=== PATIENT | male | born 1935 | race Native Hawaiian/Other Pacific Islander ===

== ENCOUNTER 2018-05-09 12:52 | Inpatient (IN) | payer OTHER ==
--- NOTE | 2018-05-09 13:26 | ED PDOC ---
Arrival/HPI <MaxwellDontrell - Last Filed: 05/09/18 15:04> <Bandar Gould - Last Filed: 05/09/18 15:42> - General Chief Complaint: Abnormal Labs - History of Present Illness Narrative History of Present Illness (Text): Patient is a 82 year old male with a past medical history of hypertension and CVA (2008) who presents to the emergency room for evaluation and treatment of abnormal lab values. Patient was sent in by Dr. Todd for further work up of abnormal kidney numbers on outpatient labs. Denies urinary urgency, frequency, and burning. Denies changes in urine quality and/or quantity. Admits to incresed generalized weakness over the past 3 years. Patient denies fever, chills, chest pain, SOB, abdominal pain, nausea, vomiting, diarrhea, constipation, and urinary symptoms. (Dontrell Arreola) Past Medical History - Provider Review Nursing Documentation Reviewed: Yes - Cardiac Hx Congestive Heart Failure: Yes Hx Hypertension: Yes - Neurological HX Cerebrovascular Accident: Yes (2008) - Psychiatric Hx Substance Use: No <Dontrell Arreola - Last Filed: 05/09/18 15:04> Family/Social History - Physician Review Nursing Documentation Reviewed: Yes Family/Social History: Unknown Family HX Smoking Status: Former Smoker Hx Alcohol Use: No Hx Substance Use: No <Dontrell Arreola - Last Filed: 05/09/18 15:04> Allergies/Home Meds <Dontrell Arreola - Last Filed: 05/09/18 15:04> <Bandar Gould - Last Filed: 05/09/18 15:42> Allergies/Adverse Reactions: Allergies No Known Allergies Allergy (Verified 05/09/18 13:01) Home Medications: Home Meds Medication Instructions Recorded Confirmed Aspirin [Aspirin EC] 325 mg PO DAILY 05/09/18 05/09/18 Clopidogrel [Plavix] 75 mg PO DAILY 05/09/18 05/09/18 Furosemide [Lasix] 20 mg PO DAILY 05/09/18 05/09/18 Losartan [Cozaar] 50 mg PO DAILY 05/09/18 05/09/18 Metoprolol Tartrate [Lopressor] 50 mg PO BID 05/09/18 05/09/18 Potassium Chloride [Klor-Con 10] 10 meq PO DAILY 05/09/18 05/09/18 Simvastatin [Simvastatin] 10 mg PO DAILY 05/09/18 05/09/18 Review of Systems - Review of Systems Constitutional: Normal Eyes: Normal ENT: Normal Respiratory: Normal Cardiovascular: Normal Gastrointestinal: Normal Genitourinary Male: Normal Musculoskeletal: Normal Skin: Normal Neurological: Normal Endocrine: Normal Hemo/Lymphatic: Normal Psychiatric: Normal <ArreolaDontrell sheppard - Last Filed: 05/09/18 15:04> Physical Exam Temperature: Afebrile Blood Pressure: Normal Pulse: Regular Respiratory Rate: Normal Appearance: Positive for: Well-Appearing, Non-Toxic, Comfortable Pain Distress: None Mental Status: Positive for: Alert and Oriented X 3 - Systems Exam Head: Present: Atraumatic, Normocephalic Pupils: Present: PERRL Extroacular Muscles: Present: EOMI Conjunctiva: Present: Normal Mouth: Present: Moist Mucous Membranes Neck: Present: Normal Range of Motion Respiratory/Chest: Present: Clear to Auscultation, Good Air Exchange. No: Respiratory Distress, Accessory Muscle Use Cardiovascular: Present: Regular Rate and Rhythm, Normal S1, S2. No: Murmurs Abdomen: No: Tenderness, Distention, Peritoneal Signs Back: Present: Normal Inspection Upper Extremity: Present: Normal Inspection. No: Cyanosis, Edema Lower Extremity: Present: Normal Inspection. No: Edema Neurological: Present: GCS=15, CN II-XII Intact, Speech Normal Skin: Present: Warm, Dry, Normal Color. No: Rashes Psychiatric: Present: Alert, Oriented x 3, Normal Insight, Normal Concentration <MaxwellDontrell - Last Filed: 05/09/18 15:04> Vital Signs Reviewed: Yes <Bandar Gould - Last Filed: 05/09/18 15:42> Vital Signs Temp Pulse Resp BP Pulse Ox 05/09/18 13:29 98.5 F 85 05/09/18 12:57 98.1 F 83 18 118/66 99 Medical Decision Making <Dontrell Arreola - Last Filed: 05/09/18 15:04> - Lab Interpretations I have reviewed the lab results: Yes <Bandar Gould - Last Filed: 05/09/18 15:42> ED Course and Treatment: Patient is a 82 year old male with a past medical history of hypertension and CVA (2008) who presents to the emergency room for evaluation and treatment of abnormal lab values. Outpatient Abnormal Lab Values 05/09/18 13:26 - CBC, CMP, Mag, Phos, and type and screen. 05/09/18 15:05 - labs reviewed- elevated BUN and creatinine noted - patient endorsed to Dr. Ordoñez who as except patient to her service (Dontrell Arreola) 05/09/18 In agreement with resident note, which includes further HPI details. Patient was seen and evaluated with resident, came up with plan and treatment together. (Bandar Gould) - Lab Interpretations Lab Results: 05/09/18 13:30 05/09/18 13:30 Lab Results 05/09/18 13:30: Sodium 145, Potassium 4.1, Chloride 111 H, Carbon Dioxide 19 L, Anion Gap 19, BUN 87 H, Creatinine 2.4 H, Est GFR ( Amer) 32, Est GFR ( Non-Af Amer) 26, Random Glucose 112 H, Calcium 8.6, Phosphorus 4.1, Magnesium 2.0, Total Bilirubin 0.1 L, AST 20, ALT 24, Alkaline Phosphatase 51, Total Protein 7.0, Albumin 4.1, Globulin 2.9, Albumin/Globulin Ratio 1.4 05/09/18 13:30: WBC 6.4, RBC 3.09 L, Hgb 8.8 L, Hct 26.5 L, MCV 85.8, MCH 28.5, MCHC 33.2, RDW 13.4, Plt Count 163, MPV 10.0, Gran % 60.9, Lymph % (Auto) 16.5 L , [place] % (Auto) 10.5 H, Eos % (Auto) 11.5 H, Baso % (Auto) 0.6, Gran # 3.90, Lymph # (Auto) 1.1 L, [place] # (Auto) 0.7 H, Eos # (Auto) 0.7, Baso # (Auto) 0.04 05/09/18 13:00: Blood Type AB POSITIVE, Antibody Screen Negative, BBK History Checked No verified bt <MaxwellDontrell - Last Filed: 05/09/18 15:04> - PA / OPHTHALMIC TECH / Resident Statement / has reviewed & agrees with the documentation as recorded. MD/ has examined the patient and agrees with the treatment plan. - Scribe Statement The provider has reviewed the documentation as recorded by the Scribe <Bandar Gould - Last Filed: 05/09/18 15:42> - Scribe Statement Katya Anthonydua Provider Scribe Attestation: All medical record entries made by the Scribe were at my direction and personally dictated by me. I have reviewed the chart and agree that the record accurately reflects my personal performance of the history, physical exam, medical decision making, and the department course for this patient. I have also personally directed, reviewed, and agree with the discharge instructions and disposition. (Bandar Gould) Disposition/Present on Arrival - Present on Arrival Any Indicators Present on Arrival: No History of DVT/PE: No History of Uncontrolled Diabetes: No Urinary Catheter: No History of Decub. Ulcer: No History Surgical Site Infection Following: None - Disposition Have Diagnosis and Disposition been Completed?: Yes Disposition Time: 15:05 <Dontrell Arreola - Last Filed: 05/09/18 15:04> <Bandar Gould - Last Filed: 05/09/18 15:42> - Disposition Diagnosis: HENRIK (acute kidney injury) Disposition: HOSPITALIZED Patient Problems: Current Active Problems Problem Status Onset HENRIK (acute kidney injury) Acute Condition: GOOD Referrals: Iveth Cramer MD [Primary Care Provider] - Follow up with primary Forms: [employer] ([place])
[2018-05-09 13:38] LABS: BASO # 0.04 K/mm3 (0.0-2.0); BASO % 0.6 % (0.0-3.0); EOS # 0.7 (0.0-0.7); EOS % 11.5 % (1.5-5.0); GRAN # 3.9 (1.4-6.5); GRAN % 60.9 % (50.0-68.0); HEMOGLOBIN 8.8 g/dL (14.0-18.0); LYMPH # 1.1 (1.2-3.4); LYMPH % 16.5 % (22.0-35.0); MEAN CELL VOLUME 85.8 fl (80.0-105.0); MEAN CORPUSCULAR HEMOGLOBIN 28.5 pg (25.0-35.0); MEAN CORPUSCULAR HGB CONC 33.2 g/dl (31.0-37.0); MONO # 0.7 (0.1-0.6); MONO % 10.5 % (1.0-6.0); RBC 3.09 10^6/uL (3.5-6.1); RED CELL DISTRIBUTION WIDTH 13.4 % (11.5-14.5); WHITE BLOOD COUNT 6.4 10^3/ul (4.5-11.0)
[2018-05-09 13:50] LABS: ALB/GLOB RATIO 1.4 (1.1-1.8); ALBUMIN 4.1 g/dL (3.0-4.8); CALCIUM 8.6 mg/dL (8.4-10.5)
[2018-05-09 17:01] VITALS: BMI 20.8
[2018-05-09 20:29] LABS: URIC ACID 9.9 mg/dL (3.5-8.5)
[2018-05-09] MEDS: Sodium Chloride 0.9% 1,000 ML IV SCH (20:47)
--- NOTE | 2018-05-09 22:36 | CP.PCM.PN ---
Subjective - Date & Time of Evaluation Date of Evaluation: 05/09/18 Time of Evaluation: 22:35 - Subjective Subjective: Nurse calls and tells that patient's BP is 128/44, HR 44/min, EKG shows Junctional bradycardia with rate of 43/min , is asymptomtic.Received Lopressor. Patient has no complaints now. Gives history of smoking 1 PPD of cigarettes for 42 years, played golf for 20 years. This 82 year old male was admitted for HENRIK,anemia. Has PMH of HTN, CVA in 2008. Objective - Vital Signs/Intake and Output Vital Signs (last 24 hours): Temp Pulse Resp BP Pulse Ox 97.6 F 85 19 125/72 98 05/09/18 17:24 05/09/18 17:41 05/09/18 17:24 05/09/18 17:24 05/09/18 17:24 - Medications Medications: Current Medications Aspirin (Ecotrin) 325 mg PO DAILY [facility] Atorvastatin Calcium (Lipitor) 10 mg PO DIN [facility] Clopidogrel Bisulfate (Plavix) 75 mg PO DAILY [facility] Sodium Chloride (Sodium Chloride 0.9%) 1,000 mls @ 60 mls/hr IV .[id number] [facility] Last Admin: 05/09/18 20:47 Dose: 60 mls/hr Metoprolol Tartrate (Lopressor) 50 mg PO BID [facility] - Constitutional Appears: Well, No Acute Distress - Head Exam Head Exam: ATRAUMATIC, NORMAL INSPECTION, NORMOCEPHALIC - Eye Exam Eye Exam: Normal appearance - ENT Exam ENT Exam: Normal External Ear Exam - Neck Exam Neck Exam: Normal Inspection - Respiratory Exam Respiratory Exam: NORMAL BREATHING PATTERN - Cardiovascular Exam Cardiovascular Exam: absent: JVD - GI/Abdominal Exam GI & Abdominal Exam: absent: Distended - Rectal Exam Rectal Exam: Deferred - Exam Additional comments: Deferred. - Extremities Exam Extremities Exam: Normal Inspection - Back Exam Back Exam: NORMAL INSPECTION - Neurological Exam Neurological Exam: Alert, Awake, Oriented x3 - Psychiatric Exam Psychiatric exam: Normal Affect, Normal Mood - Skin Skin Exam: Normal Color Assessment and Plan - Assessment and Plan (Free Text) Assessment: Junctional bradycardia. Hypertension. HENRIK. Anemia. Plan: Hold betablocker.
[2018-05-10 01:16] LABS: URINE BILIRUBIN NEGATIVE (NEGATIVE); URINE BLOOD NEGATIVE (NEGATIVE); URINE GLUCOSE (UA) NEGATIVE (NEGATIVE); URINE LEUKOCYTE ESTERASE NEGATIVE Leu/uL (NEGATIVE); URINE PROTEIN NEGATIVE mg/dL (<30 mg/dL); URINE UROBILINOGEN 0.2 E.U./dL (<1 E.U./dL)
[2018-05-10 01:18] LABS: URINE APPEARANCE CLEAR (CLEAR); URINE COLOR YELLOW (YELLOW)
[2018-05-10 01:35] LABS: CREATININE,RANDOM URINE 34 mg/dL
[2018-05-10 07:20] LABS: ALB/GLOB RATIO 1.2 (1.1-1.8); ALBUMIN 3.6 g/dL (3.0-4.8); CALCIUM 8.8 mg/dL (8.4-10.5)
[2018-05-10 07:22] LABS: IRON 72 ug/dL (45-180)
--- NOTE | 2018-05-10 07:31 | CP.PCM.CON ---
History of Present Illness - History of Present Illness History of Present Illness: Awake, no distress,denies chest pain, denies shortness of breath Reason for consultation: Cardiac evaluation,bradycardia (44/min), came to [facility] due to abnormal lab results (elevated BUN/creatinine) history of hypertension, CVA (2008) no residual. Brief history of present illness: An 82 year old male, [place] who was sent to the ER by PMD due to abnormal BUN/Creatinine, laboratory results, for further work up. He complained of generalized increasing weakness for the past 3 days. He denies difficulty in urination, change in frequency of urination or any abnormal symptoms. History of hypertension,CHF CVA, no residual or weakness.former smoker. Uses cane to walk. Seen and examined by me and Dr. Bhandari Review of Systems - Constitutional Constitutional: As Per HPI - EENT Additional comments: denies any problems - Cardiovascular Additional comments: denies chest pain, was told that heart rate was low - Respiratory Additional comments: denies shortness of breath - Gastrointestinal Additional comments: denies nausea/vomiting - Genitourinary Additional comments: denies any problems Past Patient History - Past Social History Smoking Status: Former Smoker - CARDIAC Hx Congestive Heart Failure: Yes Hx Hypertension: Yes - NEUROLOGICAL HX Cerebrovascular Accident: Yes (2008) - MUSCULOSKELETAL/RHEUMATOLOGICAL Hx Falls: No - PSYCHIATRIC Hx Substance Use: No - SURGICAL HISTORY Hx Surgeries: No Meds Allergies/Adverse Reactions: Allergies Allergy/AdvReac Type Severity Reaction Status Date / Time No Known Allergies Allergy Verified 05/09/18 13:01 - Medications Medications: Current Medications Aspirin (Ecotrin) 325 mg PO DAILY [facility] Atorvastatin Calcium (Lipitor) 10 mg PO DIN [facility] Clopidogrel Bisulfate (Plavix) 75 mg PO DAILY [facility] Sodium Chloride (Sodium Chloride 0.9%) 1,000 mls @ 60 mls/hr IV .[id number] [facility] Last Admin: 05/09/18 20:47 Dose: 60 mls/hr Metoprolol Tartrate (Lopressor) 50 mg PO BID [facility] Results - Vital Signs Recent Vital Signs: Last Vital Signs Temp 97.6 F 05/09/18 17:24 Pulse 85 05/09/18 17:41 Resp 19 05/09/18 17:24 BP 125/72 05/09/18 17:24 Pulse Ox 98 05/09/18 17:24 - Labs Result Diagrams: 05/09/18 13:30 05/10/18 06:51 Labs: Laboratory Results - last 24 hr 05/09/18 05/09/18 05/10/18 19:30 20:00 00:30 Sodium Potassium Chloride Carbon Dioxide Anion Gap BUN Creatinine Est GFR ( Amer) Est GFR (Non-Af Amer) Random Glucose Uric Acid 9.9 H Calcium Phosphorus 5.3 H Magnesium 2.0 Iron Total Bilirubin AST ALT Alkaline Phosphatase Total Creatine Kinase 154 Total Protein Albumin Globulin Albumin/Globulin Ratio Urine Color Urine Appearance Urine pH Ur Specific [place] Urine Protein Urine Glucose (UA) Urine Ketones Urine Blood Urine Nitrate Urine Bilirubin Urine Urobilinogen Ur Leukocyte Esterase Ur Random Creatinine 34 Ur Random Sodium 101 Ur Random Urea Nitrogn 401 Blood Type Confirm AB POSITIVE 05/10/18 05/10/18 05/10/18 00:30 06:51 06:51 Sodium 148 Potassium 4.8 Chloride 116 H Carbon Dioxide 19 L Anion Gap 18 BUN 80 H Creatinine 2.4 H Est GFR ( Amer) 32 Est GFR (Non-Af Amer) 26 Random Glucose 96 Uric Acid Calcium 8.8 Phosphorus Magnesium Iron 72 Total Bilirubin 0.2 AST 20 ALT 19 Alkaline Phosphatase 53 Total Creatine Kinase Total Protein 6.6 Albumin 3.6 Globulin 3.1 Albumin/Globulin Ratio 1.2 Urine Color Yellow Urine Appearance Clear Urine pH 6.0 Ur Specific [place] 1.010 Urine Protein Negative Urine Glucose (UA) Negative Urine Ketones Negative Urine Blood Negative Urine Nitrate Negative Urine Bilirubin Negative Urine Urobilinogen 0.2 Ur Leukocyte Esterase Negative Ur Random Creatinine Ur Random Sodium Ur Random Urea Nitrogn Blood Type Confirm Assessment & Plan - Assessment and Plan (Free Text) Assessment: Brief history of present illness: An 82 year old male, [place] who was sent to the ER by PMD due to abnormal BUN/Creatinine, laboratory results, for further work up. He complained of generalized increasing weakness for the past 3 days. He denies difficulty in urination, change in frequency of urination or any abnormal symptoms. History of hypertension,CHF CVA, no residual or weakness.former smoker. Uses cane to walk. Review of previous cardiac work up: No work up done at [facility]. Plan: Episode of bradycardia Heart rate now 70's and 80's Stable blood pressure Continue to hold betablocker Monitor heart rate if persist, will transfer to telemetry and put on holter monitor. ECHO to evaluate LV function On ASA 325 mg daily, Lipitor 10 mg daily,Plavix 75 mg daily On IV hydration Continue current treatment Continue current medications Will follow up Plan and treatment discussed with Dr. Bhandari Thank you Dr. Cramer for the opportunity of taking care of Mr. Joanne Thakkar - Date & Time Date: 05/10/18 Time: 06:45
[2018-05-10 07:33] LABS: % IRON SATURATION 29 % (20-55); TOTAL IRON BINDING CAPACITY 251 ug/dL (261-462)
--- NOTE | 2018-05-10 09:17 | CARD ---
APPROVED REPORT EKG Measurement Heart [id number] <Conclusion> Sinus bradycardia Abnormal ECG
[2018-05-10] MEDS ORDERED: Aspirin 325 mg EC Tablets PO SCH (10:00)
[2018-05-10 12:27] LABS: INR 0.94 (0.93-1.08); PARTIAL THROMBOPLASTIN TIME 29.4 Seconds (25.1-36.5); PROTHROMBIN TIME 10.8 SECONDS (9.4-12.5)
[2018-05-10 12:47] LABS: FOLATE 15.5 ng/mL
--- NOTE | 2018-05-10 12:59 | CP.PCM.CON ---
<Sultana Booth - Last Filed: 05/10/18 12:55> History of Present Illness - History of Present Illness History of Present Illness: GI Consult Note For Beatriz Renteria PGY2 Reason for consult: Anemia This is an 82yo make with past medical history of HTN and CVA who was sent in by PMD for abnormal lab values. Patient was found to have anemia and abnormal kidney function. Patient has never had a colonoscopy or EGD before. He denies dark color or blood in stools, nausea/vomiting/diarrhea, fever/chills, chest pain, or shortness of breath. Patient is on ASA 81mg and Plavix at home ( confirmed with [facility] pharmacy), but he is not sure why he is taking the Plavix. His neurologist was Dr. Zheng, but has not seen in a few years. Patient denies taking any NSAIDs at home and will only take Tylenol if he has any pain. Overnight patient was found to have bradycardia. Metoprolol was held. Past medical history: HTN, CVA (2008) Past surgical history: appendectomy Home meds: Reviewed as per JAN Allergies: NKDA Social history: Denies EtOH use, former smoker, denies drug use. Lives with and daughter. Walks with cane Family history: denies history of cancer Review of Systems - Review of Systems All systems: reviewed and no additional remarkable complaints except Review of Systems: 12 point ROS reviewed and is otherwise negative Past Patient History - Past Social History Smoking Status: Former Smoker - CARDIAC Hx Congestive Heart Failure: Yes Hx Hypertension: Yes - NEUROLOGICAL HX Cerebrovascular Accident: Yes (2008) - MUSCULOSKELETAL/RHEUMATOLOGICAL Hx Falls: No - PSYCHIATRIC Hx Substance Use: No - SURGICAL HISTORY Hx Surgeries: No Meds Allergies/Adverse Reactions: Allergies Allergy/AdvReac Type Severity Reaction Status Date / Time No Known Allergies Allergy Verified 05/09/18 13:01 - Medications Medications: Current Medications Aspirin (Ecotrin) 325 mg PO DAILY [facility] Last Admin: 05/10/18 09:21 Dose: 325 mg Atorvastatin Calcium (Lipitor) 10 mg PO DIN GONZALEZ Sodium Chloride (Sodium Chloride 0.9%) 1,000 mls @ 60 mls/hr IV .[id number] [facility] Last Admin: 05/09/18 20:47 Dose: 60 mls/hr Metoprolol Tartrate (Lopressor) 50 mg PO BID GONZALEZ Physical Exam - Constitutional Appears: No Acute Distress - Head Exam Head Exam: ATRAUMATIC, NORMAL INSPECTION, NORMOCEPHALIC - Eye Exam Eye Exam: Normal appearance, PERRL Pupil Exam: NORMAL ACCOMODATION - ENT Exam ENT Exam: Mucous Membranes Moist - Respiratory Exam Respiratory Exam: Clear to Auscultation Bilateral, NORMAL BREATHING PATTERN. absent: Rales, Rhonchi, Wheezes - Cardiovascular Exam Cardiovascular Exam: REGULAR RHYTHM, +S1, +S2. absent: Gallop, Rubs, Systolic Murmur - GI/Abdominal Exam GI & Abdominal Exam: Normal Bowel Sounds, Soft. absent: Mass, Rebound, Rigid, Tenderness - Extremities Exam Extremities exam: Positive for: normal inspection. Negative for: calf tenderness, pedal edema - Neurological Exam Neurological exam: Alert, CN II-XII Intact, Oriented x3 - Psychiatric Exam Psychiatric exam: Normal Affect, Normal Mood - Skin Skin Exam: Dry, Warm Results - Vital Signs Recent Vital Signs: Last Vital Signs Temp 98.3 F 05/10/18 06:00 Pulse 54 L 05/10/18 06:00 Resp 18 05/10/18 06:00 BP 143/54 L 05/10/18 06:00 Pulse Ox 100 05/10/18 06:00 - Labs Result Diagrams: 05/09/18 13:30 05/10/18 06:51 Labs: Laboratory Results - last 24 hr 05/09/18 05/09/18 05/10/18 19:30 20:00 00:30 PT INR APTT Sodium Potassium Chloride Carbon Dioxide Anion Gap BUN Creatinine Est GFR ( Amer) Est GFR (Non-Af Amer) Random Glucose Uric Acid 9.9 H Calcium Phosphorus 5.3 H Magnesium 2.0 Iron TIBC % Saturation Ferritin Total Bilirubin AST ALT Alkaline Phosphatase Total Creatine Kinase 154 Troponin I Total Protein Albumin Globulin Albumin/Globulin Ratio Vitamin B12 25-OH Vitamin D Total Folate Urine Color Urine Appearance Urine pH Ur Specific [place] Urine Protein Urine Glucose (UA) Urine Ketones Urine Blood Urine Nitrate Urine Bilirubin Urine Urobilinogen Ur Leukocyte Esterase Ur Random Creatinine 34 Ur Random Sodium 101 Ur Random Urea Nitrogn 401 Blood Type Confirm AB POSITIVE 05/10/18 05/10/18 05/10/18 00:30 06:51 06:51 PT INR APTT Sodium 148 Potassium 4.8 Chloride 116 H Carbon Dioxide 19 L Anion Gap 18 BUN 80 H Creatinine 2.4 H Est GFR ( Amer) 32 Est GFR (Non-Af Amer) 26 Random Glucose 96 Uric Acid Calcium 8.8 Phosphorus Magnesium Iron 72 TIBC 251 L % Saturation 29 Ferritin 313.0 Total Bilirubin 0.2 AST 20 ALT 19 Alkaline Phosphatase 53 Total Creatine Kinase Troponin I Total Protein 6.6 Albumin 3.6 Globulin 3.1 Albumin/Globulin Ratio 1.2 Vitamin B12 771 25-OH Vitamin D Total Folate 15.5 Urine Color Yellow Urine Appearance Clear Urine pH 6.0 Ur Specific [place] 1.010 Urine Protein Negative Urine Glucose (UA) Negative Urine Ketones Negative Urine Blood Negative Urine Nitrate Negative Urine Bilirubin Negative Urine Urobilinogen 0.2 Ur Leukocyte Esterase Negative Ur Random Creatinine Ur Random Sodium Ur Random Urea Nitrogn Blood Type Confirm 05/10/18 05/10/18 05/10/18 06:51 07:00 12:00 PT 10.8 INR 0.94 APTT 29.4 Sodium Potassium Chloride Carbon Dioxide Anion Gap BUN Creatinine Est GFR ( Amer) Est GFR (Non-Af Amer) Random Glucose Uric Acid Calcium Phosphorus Magnesium Iron TIBC % Saturation Ferritin Total Bilirubin AST ALT Alkaline Phosphatase Total Creatine Kinase Troponin I < 0.01 Total Protein Albumin Globulin Albumin/Globulin Ratio Vitamin B12 25-OH Vitamin D Total 47.4 Folate Urine Color Urine Appearance Urine pH Ur Specific [place] Urine Protein Urine Glucose (UA) Urine Ketones Urine Blood Urine Nitrate Urine Bilirubin Urine Urobilinogen Ur Leukocyte Esterase Ur Random Creatinine Ur Random Sodium Ur Random Urea Nitrogn Blood Type Confirm Assessment & Plan - Assessment and Plan (Free Text) Assessment: This is an 82yo make with past medical history of HTN and CVA who was admitted for 1. HENRIK - Cr 2.4 2. Anemia - Hgb 8.8 - Pt was taking ASA and Plavix at home according to pharmacy 3. HTN 4. CVA 5. Bradycardia Plan: Will obtain CT A/P with PO contrast only. Will continue patient's ASA 81mg. Plan is for diagnostic EGD tomorrow. Patient will be NPO at midnight. I spoke with daughter and who agree with the plan. Will continue to monitor H/H. Nephrology on consult for HENRIK. Cardiology on consult for bradycardia. Discussed plan with PMD. Case seen, discussed and reviewed with Dr. Arriola. Beatriz Booth PGY2 - Date & Time Date: 05/10/18 Time: 13:06 <Azam Arriola V - Last Filed: 05/10/18 20:49> Meds - Medications Medications: Current Medications Aspirin (Aspirin Chewable) 81 mg PO DAILY [facility] Atorvastatin Calcium (Lipitor) 10 mg PO DIN [facility] Last Admin: 05/10/18 17:33 Dose: 10 mg Sodium Chloride (Sodium Chloride 0.9%) 1,000 mls @ 60 mls/hr IV .[id number] [facility] Last Admin: 05/09/18 20:47 Dose: 60 mls/hr Metoprolol Tartrate (Lopressor) 50 mg PO BID [facility] Results - Vital Signs Recent Vital Signs: Last Vital Signs Temp 98.2 F 05/10/18 14:00 Pulse 59 L 05/10/18 14:00 Resp 18 05/10/18 14:00 BP 127/42 L 05/10/18 14:00 Pulse Ox 100 05/10/18 14:00 - Labs Result Diagrams: 05/09/18 13:30 05/10/18 06:51 Labs: Laboratory Results - last 24 hr 05/10/18 05/10/18 05/10/18 00:30 00:30 06:51 PT INR APTT Sodium 148 Potassium 4.8 Chloride 116 H Carbon Dioxide 19 L Anion Gap 18 BUN 80 H Creatinine 2.4 H Est GFR ( Amer) 32 Est GFR (Non-Af Amer) 26 Random Glucose 96 Calcium 8.8 Iron TIBC % Saturation Ferritin 313.0 Total Bilirubin 0.2 AST 20 ALT 19 Alkaline Phosphatase 53 Troponin I Total Protein 6.6 Albumin 3.6 Globulin 3.1 Albumin/Globulin Ratio 1.2 Vitamin B12 771 25-OH Vitamin D Total Folate 15.5 Urine Color Yellow Urine Appearance Clear Urine pH 6.0 Ur Specific [place] 1.010 Urine Protein Negative Urine Glucose (UA) Negative Urine Ketones Negative Urine Blood Negative Urine Nitrate Negative Urine Bilirubin Negative Urine Urobilinogen 0.2 Ur Leukocyte Esterase Negative Ur Random Creatinine 34 Ur Random Sodium 101 Ur Random Urea Nitrogn 401 05/10/18 05/10/18 05/10/18 06:51 06:51 07:00 PT INR APTT Sodium Potassium Chloride Carbon Dioxide Anion Gap BUN Creatinine Est GFR ( Amer) Est GFR (Non-Af Amer) Random Glucose Calcium Iron 72 TIBC 251 L % Saturation 29 Ferritin Total Bilirubin AST ALT Alkaline Phosphatase Troponin I < 0.01 Total Protein Albumin Globulin Albumin/Globulin Ratio Vitamin B12 25-OH Vitamin D Total 47.4 Folate Urine Color Urine Appearance Urine pH Ur Specific [place] Urine Protein Urine Glucose (UA) Urine Ketones Urine Blood Urine Nitrate Urine Bilirubin Urine Urobilinogen Ur Leukocyte Esterase Ur Random Creatinine Ur Random Sodium Ur Random Urea Nitrogn 05/10/18 12:00 PT 10.8 INR 0.94 APTT 29.4 Sodium Potassium Chloride Carbon Dioxide Anion Gap BUN Creatinine Est GFR ( Amer) Est GFR (Non-Af Amer) Random Glucose Calcium Iron TIBC % Saturation Ferritin Total Bilirubin AST ALT Alkaline Phosphatase Troponin I Total Protein Albumin Globulin Albumin/Globulin Ratio Vitamin B12 25-OH Vitamin D Total Folate Urine Color Urine Appearance Urine pH Ur Specific [place] Urine Protein Urine Glucose (UA) Urine Ketones Urine Blood Urine Nitrate Urine Bilirubin Urine Urobilinogen Ur Leukocyte Esterase Ur Random Creatinine Ur Random Sodium Ur Random Urea Nitrogn Attending/Attestation - Attestation I have personally seen and examined this patient.: Yes I have fully participated in the care of the patient.: Yes I have reviewed all pertinent clinical information: Yes Notes (Text): This is an addendum to GI consult report dictated by the Preparation Plant Repairer.The patient was seen and examined earlier. Medical records, lab studies, imagings were reviewed. Last 24 hours events reviewed. Agreed with the above treatment plan as outlined in Preparation Plant Repairer 's notes the with the addition of the following denies melena or bright red blood prrectum On examination abdomen soft no tenderness Patient is on aspirin and Plavix Iron studies not typically of iron deficiency. TIBC normal with the normal transferrin saturation Probable multifactorial etiology HENRIK on the top of CKD Will review CT Diagnostic EGD in a.m. follow-up hemoglobin and hct continue PPI Renal followup We will hold Plavix for now Discussed with the Dr. Cramer 05/10/18 20:37
[2018-05-10] MEDS ORDERED: Barium Sulfate Susp 2.1% w/v, 2.0% w/w 450 mL Bottle PO ONE (13:21)
--- NOTE | 2018-05-10 13:34 | US ---
PROCEDURE: Ultrasound of the Kidneys HISTORY: Acute renal failure COMPARISON: None available. TECHNIQUE: Grayscale imaging was performed. FINDINGS: RIGHT KIDNEY: Measures: 8.4 cm. Normal in size, contour with mild diffuse increased echogenicity. No stone, solid mass lesion or hydronephrosis visualized. LEFT KIDNEY: Measures: 9.4 cm. Normal in size, contour with mild diffuse increased echogenicity. No stone, solid mass lesion or hydronephrosis visualized. OTHER FINDINGS: None. IMPRESSION: Chronic renal parenchymal renal disease. No nephrolithiasis or hydronephrosis.
--- NOTE | 2018-05-10 17:53 | CT ---
PROCEDURE: CT Abdomen and Pelvis with contrast HISTORY: anemia COMPARISON: May 10, 2018. Renal ultrasound TECHNIQUE: Oral contrast only. Radiation dose: Total exam DLP = 245.67 mGy-cm. This CT exam was performed using one or more of the following dose reduction techniques: Automated exposure control, adjustment of the mA and/or kV according to patient size, and/or use of iterative reconstruction technique. FINDINGS: LOWER THORAX: Unremarkable. LIVER: Unremarkable. No gross lesion or ductal dilatation. GALLBLADDER AND BILE DUCTS: Cholelithiasis without CT evidence of acute cholecystitis. PANCREAS: Unremarkable. No gross lesion or ductal dilatation. SPLEEN: Unremarkable. ADRENALS: Unremarkable. No mass. KIDNEYS AND URETERS: Unremarkable. No hydronephrosis. No solid mass. VASCULATURE: Unremarkable. No aortic aneurysm. BOWEL: Diverticulosis without an acute inflammatory component or other associated pathologic process. APPENDIX: Normal appendix. PERITONEUM: Unremarkable. No free fluid. No free air. LYMPH NODES: Unremarkable. No enlarged lymph nodes. BLADDER: Unremarkable. REPRODUCTIVE: Unremarkable. BONES: No acute fracture. OTHER FINDINGS: None. IMPRESSION: No acute findings related to/accounting for the clinical presentation. Cholelithiasis without CT evidence of acute cholecystitis.
[2018-05-10] MEDS ORDERED: Darbepoetin Alfa 60 mcg/ml Inj SC ONE (19:34)
--- NOTE | 2018-05-10 19:34 | CP.PCM.PN ---
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 but awaiting further urine studies; no improvement with IVF; renal US unremarkable; will give aranesp for anemia since he is iron replete; avoid nephrotoxic agents ; will continue to follow closely; Objective - Vital Signs/Intake and Output Vital Signs (last 24 hours): Temp Pulse Resp BP Pulse Ox 98.2 F 59 L 18 127/42 L 100 05/10/18 14:00 05/10/18 14:00 05/10/18 14:00 05/10/18 14:00 05/10/18 14:00 Intake and Output: 05/10/18 05/11/18 18:59 06:59 Intake Total 300 Balance 300 - Medications Medications: Current Medications Aspirin (Aspirin Chewable) 81 mg PO DAILY [facility] Atorvastatin Calcium (Lipitor) 10 mg PO DIN [facility] Last Admin: 05/10/18 17:33 Dose: 10 mg Sodium Chloride (Sodium Chloride 0.9%) 1,000 mls @ 60 mls/hr IV .[id number] [facility] Last Admin: 05/09/18 20:47 Dose: 60 mls/hr Metoprolol Tartrate (Lopressor) 50 mg PO BID [facility] - Labs Labs: 05/10/18 06:51 PT 10.8 SECONDS (9.4-12.5) 05/10/18 12:00 INR 0.94 (0.93-1.08) 05/10/18 12:00 APTT 29.4 Seconds (25.1-36.5) 05/10/18 12:00
--- NOTE | 2018-05-10 19:48 | CON ---
NEPHROLOGY CONSULTATION HISTORY OF PRESENT ILLNESS: The patient is an 82-year-old male with past medical history of hypertension, CHF, status post CVA (2008), sent by PMD for abnormal renal function on outpatient labs. Nephrology being consulted for renal insufficiency. The patient reports being in his usual state of health. Denies any new complaints. Has been feeling decreased energy level chronically since the past 2 years; otherwise, appetite has been well, tolerating diet without any nausea, vomiting; denies any shortness of breath or leg swelling; reports urinating well without any urinary urgency or difficulty with urinary stream; denies taking any pain meds other than Tylenol for acute pain. PAST MEDICAL HISTORY: As above (CHF status is unclear). SOCIAL HISTORY: Previous smoker. FAMILY HISTORY: Mother with enlarged heart. REVIEW OF SYSTEMS: CONSTITUTIONAL: No fevers or chills. HEENT: No difficulty swallowing. Vision stable. RESPIRATORY: No difficulty breathing. Occasional cough. CARDIOVASCULAR: Denies any chest pain or palpitations. No dyspnea. GI: As per HPI. : As per HPI. MUSCULOSKELETAL: Denies any aches or pains. NEUROLOGIC: Not reporting any dizziness. SKIN: Not reporting any pruritus. PSYCHIATRIC: Not reporting any anxiety. PHYSICAL EXAMINATION: VITAL SIGNS: This morning; blood pressure 143/54, heart rate 54, respirations 18, temperature 98.3, O2 sat 100% on room air. GENERAL: No distress. Conversing coherently in full sentences. HEENT: Moist mucous membranes. Nonicteric. No cervical lymphadenopathy. No JVD. CARDIOVASCULAR: Heart sounds S1, S2 normal. No murmurs, no gallops, no rubs. Bilateral femoral bruits present. RESPIRATORY: Lungs clear to auscultation bilaterally. No rales, no rhonchi, no wheezes. GI: Abdomen is soft, nontender, and nondistended. No bruits present. : No bladder distention. EXTREMITIES: No lower leg edema. SKIN: Warm. No cyanosis. PSYCHIATRIC: Normal mood and normal affect. NEUROLOGIC: No resting tremor. LABORATORY DATA: CBC from yesterday: WBC 6.4, hemoglobin 8.8, hematocrit 26.5, and platelets 163. Chemistry panel from this morning: Sodium 148, potassium 4.8, chloride 116, bicarb 19. BUN 80, creatinine 2.4. Glucose 96. Calcium 8.8. AST 20, ALT 19, albumin 3.6. Iron studies: Iron 72, TIBC 251, iron sat 29%, ferritin pending. From yesterday, uric acid 9.9, phosphorous 5.3. Urine studies: UA negative for protein, negative for blood, urine sodium 101, urine creatinine 34. Chest x-ray from this morning directly visualized, lungs clear. Renal ultrasound images directly viewed showing mildly increased echogenicity. ASSESSMENT AND PLAN: 1. Renal insufficiency. No previous labs available. Unclear how much of current renal insufficiency is chronic. Mild metabolic acidosis from renal failure. Otherwise, potassium stable, stable volume status. 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 Awaiting PTH level. We will check bladder ultrasound with postvoid residual volume measurement. We will obtain outpatient labs. 2. Anemia. Iron saturation appears replete. Awaiting for ferritin level. May be due to chronic kidney disease. Ferritin is not low. We will start Aranesp 60 mcg. 3. Hyperphosphatemia, mildly elevated phosphorus. We will monitor for now. We will start PhosLo one tablet with meals. 4. Metabolic acidosis in the setting of renal insufficiency. We will start sodium bicarb 650 mg b.i.d. p.o. 5. Hypertension. Blood pressure relatively controlled. The patient did have low heart rate seen yesterday. Metoprolol currently being held. We will hold KRISTIE inhibitor and diuretics for now as we are giving IV fluids. Thank you for this referral. We will be following up closely. Amarjit Spencer MD
[2018-05-10] MEDS: Sodium Chloride 0.9% 1,000 ML IV SCH (22:49)
--- NOTE | 2018-05-11 06:35 | CP.PCM.PN ---
Subjective - Date & Time of Evaluation Date of Evaluation: 05/11/18 Time of Evaluation: 06:10 - Subjective Subjective: Sleeping but easily awaken, no distress,denies chest pain, denies shortness of breath Reason for consultation: Cardiac evaluation,bradycardia (44/min), came to [facility] [place] due to abnormal lab results (elevated BUN/creatinine) history of hypertension, CVA (2008) no residual.former smoker. Seen and examined by me and Dr. Bhandari Objective - Vital Signs/Intake and Output Vital Signs (last 24 hours): Temp Pulse Resp BP Pulse Ox 98.2 F 59 L 18 127/42 L 100 05/10/18 14:00 05/10/18 14:00 05/10/18 14:00 05/10/18 14:00 05/10/18 14:00 Intake and Output: 05/10/18 05/11/18 18:59 06:59 Intake Total 300 120 Output Total 400 Balance 300 -280 - Medications Medications: Current Medications Aspirin (Aspirin Chewable) 81 mg PO DAILY [facility] Atorvastatin Calcium (Lipitor) 10 mg PO DIN [facility] Last Admin: 05/10/18 17:33 Dose: 10 mg Sodium Chloride (Sodium Chloride 0.9%) 1,000 mls @ 60 mls/hr IV .[id number] [facility] Last Admin: 05/10/18 22:49 Dose: 60 mls/hr - Labs Labs: 05/10/18 06:51 PT 10.8 SECONDS (9.4-12.5) 05/10/18 12:00 INR 0.94 (0.93-1.08) 05/10/18 12:00 APTT 29.4 Seconds (25.1-36.5) 05/10/18 12:00 - Constitutional Appears: No Acute Distress - Head Exam Head Exam: NORMOCEPHALIC - Eye Exam Eye Exam: Normal appearance - ENT Exam ENT Exam: Mucous Membranes Moist - Respiratory Exam Respiratory Exam: Clear to Ausculation Bilateral, NORMAL BREATHING PATTERN - Cardiovascular Exam Cardiovascular Exam: +S1, +S2 - GI/Abdominal Exam GI & Abdominal Exam: Soft, Normal Bowel Sounds - Extremities Exam Extremities Exam: Normal Capillary Refill - Neurological Exam Neurological Exam: Alert, Awake, Oriented x3 - Psychiatric Exam Psychiatric exam: Normal Affect, Normal Mood - Skin Skin Exam: Intact, Normal Color, Warm Assessment and Plan - Assessment and Plan (Free Text) Assessment: An 82 year old male, Citizen Of The [place] who was sent to the ER by PMD due to abnormal BUN/ Creatinine, laboratory results, for further work up. He complained of generalized increasing weakness for the past 3 days. He denies difficulty in urination, change in frequency of urination or any abnormal symptoms. History of hypertension,CHF CVA, no residual or weakness.former smoker. Uses cane to walk. Anemia, GI work up. Plan: ECHO to evaluate LV function Bradycardia-58/min, asymptomatic Stable blood pressure Discontinued betablocker/Lopressor Anemia, GI work up For EGD today On ASA 325 mg daily, Lipitor 10 mg daily,Plavix 75 mg daily On IV hydration for renal elevated BUN/Creatinine Continue current treatment Continue current medications Will follow up Plan and treatment discussed with Dr. Bhandari
[2018-05-11 07:36] LABS: HEMOGLOBIN 8.3 g/dL (14.0-18.0); MEAN CELL VOLUME 85.6 fl (80.0-105.0); MEAN CORPUSCULAR HEMOGLOBIN 28.5 pg (25.0-35.0); MEAN CORPUSCULAR HGB CONC 33.3 g/dl (31.0-37.0); RBC 2.91 10^6/uL (3.5-6.1); RED CELL DISTRIBUTION WIDTH 13.5 % (11.5-14.5); WHITE BLOOD COUNT 5.9 10^3/ul (4.5-11.0)
[2018-05-11 07:57] LABS: ALB/GLOB RATIO 1.2 (1.1-1.8); ALBUMIN 3.6 g/dL (3.0-4.8); CALCIUM 8.8 mg/dL (8.4-10.5)
--- NOTE | 2018-05-11 11:55 | HP ---
DATE OF EXAM: 05/10/2018 Patient was seen and examined at bedside on 05/10/2018. CHIEF COMPLAINT: Abnormal labs. HISTORY OF PRESENT ILLNESS: Mr. Bijan Rubio is an 82-year-old, my private patient, with past medical history of hypertension, CVA in 2008, actually came in my office for routine blood workup. His kidney function test was not good. There is elevation in his BUN and creatinine, drop on the hemoglobin and patient was feeling fatigued and tired. Denies urinary urgency, frequency, burning. Denies change in the urine quality and quantity. No dysuria, but feeling generalized weakness over the past couple of months. Patient is noncompliant with office visits and medications. No fever, no chills. No shortness of breath. No nausea, vomiting or diarrhea. PAST MEDICAL HISTORY: History of hypertension, CVA, congestive heart failure. FAMILY HISTORY: Father and mother, noncontributory. HABITS: Former smoker. Now not smoking. No drugs. No ethanol. ALLERGIES: PATIENT IS NOT ALLERGIC WITH ANY MEDICATIONS. HOME MEDICATIONS: Aspirin, Plavix, Lasix, Cozaar, Lopressor, potassium, simvastatin. REVIEW OF SYSTEMS: Patient was seen and examined at the bedside in the hospital, looking comfortable, feeling fatigued and tired. No nausea, vomiting or diarrhea. No hematuria or hematochezia. No headache. No dizziness, do not look like toxic. Oriented x3. PHYSICAL EXAMINATION: VITAL SIGNS: Temperature 98.5, pulse 85, respiratory rate 18, blood pressure 180/66, pulse oximetry 99. HEENT: Head: Normocephalic, atraumatic. Eyes: PERRLA. Extraocular muscles are intact. Conjunctivae clear. Nose patent. Mucous membrane moist. NECK: Supple. No carotid bruit. No JVD or thyromegaly. CHEST: Bilaterally symmetrical. HEART: S1 and S2 positive. LUNGS: Clear to auscultation. ABDOMEN: Soft. Bowel sound present. No organomegaly. EXTREMITIES: No edema. No cyanosis. NEUROLOGIC: Awake and alert, moving all 4 extremities. No focal deficit. LABORATORY DATA: White blood cell 6.4, hemoglobin 8.8, hematocrit 26.5, platelets 163. Sodium 145, potassium 4.1, BUN 67, creatinine 2.4, glucose 112. ASSESSMENT AND PLAN: Mr. Thelmo Dumadag is an 82-year-old male with anemia, hyperchloremia, renal insufficiency, hyperglycemia, acute kidney injury, history of congestive heart failure, cerebrovascular accident, admitted to rule out gastrointestinal cause of anemia. Chest x-ray done, noted by me. CAT scan of abdomen and pelvis done, no active pulmonary disease. According to CAT scan of abdomen and pelvis, no acute finding related to accounting for the clinical presentation, cholelithiasis without CT evidence of acute cholecystitis, seen by Dr. Amarjit Spencer, java tech. Looks like non-proteinuric kidney disease, but waiting for further testing. No improvement with i/v fluid , renal ultrasound unremarkable. We will give Aranesp for anemia, since he is iron-replete, avoid nephrotoxic agent. Appreciated Dr. Amarjit Spencer's input. Seen by Dr. Arriola. Discussion done with Dr. Arriola. The patient will go for endoscopy tomorrow. Patient is on aspirin and Plavix. May be multifactorial etiology for anemia. Diagnostic EGD in a.m. Follow up hemoglobin and hematocrit. Continue PPI. Seen by the medical file clerk. Patient denies change in urination or frequency. Has episode of bradycardia, now his heart rate is back to 70s and 80s. Continue holding beta blockers. We will put Holter monitor by the Cardiology. Echo for evaluation of left ventricular function. Continue aspirin, Lipitor, Plavix, hydration. Gastrointestinal and deep venous thrombosis. Repeat labs. We will follow up. Iveth Cramer MD MTDD
[2018-05-11] MEDS ORDERED: Propofol 10 mg/ml Inj (20 ML) ONE ×2 (15:46→16:16)
[2018-05-11] MEDS ORDERED: Sodium Chloride 0.9% 1,000 ML IV SCH (16:15)
--- NOTE | 2018-05-11 18:12 | CP.PCM.PN ---
Subjective - Date & Time of Evaluation Date of Evaluation: 05/11/18 Time of Evaluation: 11:00 - Subjective Subjective: Reports feeling well; no difficulty breathing; no nausea/vomiting; tolerating diet; Objective - Vital Signs/Intake and Output Vital Signs (last 24 hours): Temp Pulse Resp BP Pulse Ox 98.2 F 60 20 131/40 L 98 05/11/18 16:46 05/11/18 16:46 05/11/18 16:46 05/11/18 16:46 05/11/18 16:46 Intake and Output: 05/11/18 05/11/18 06:59 18:59 Output Total 400 Balance -400 - Medications Medications: Current Medications Aspirin (Aspirin Chewable) 81 mg PO DAILY [facility] Atorvastatin Calcium (Lipitor) 10 mg PO DIN [facility] Last Admin: 05/10/18 17:33 Dose: 10 mg Sodium Chloride (Sodium Chloride 0.9%) 1,000 mls @ 60 mls/hr IV .[id number] [facility] Last Admin: 05/10/18 22:49 Dose: 60 mls/hr Sodium Chloride (Sodium Chloride 0.9%) 1,000 mls @ 100 mls/hr IV .Q10H [facility] - Labs Labs: 05/11/18 07:00 05/11/18 07:00 PT 10.8 SECONDS (9.4-12.5) 05/10/18 12:00 INR 0.94 (0.93-1.08) 05/10/18 12:00 APTT 29.4 Seconds (25.1-36.5) 05/10/18 12:00 - Constitutional Appears: Non-toxic, No Acute Distress - Eye Exam Eye Exam: Normal appearance - ENT Exam ENT Exam: Mucous Membranes Moist - Respiratory Exam Respiratory Exam: Clear to Ausculation Bilateral. absent: Respiratory Distress - Cardiovascular Exam Cardiovascular Exam: RRR, +S1, +S2 - GI/Abdominal Exam GI & Abdominal Exam: Soft. absent: Distended, Tenderness - Extremities Exam Additional comments: no leg edema; - Neurological Exam Neurological Exam: Alert, Awake - Psychiatric Exam Psychiatric exam: Normal Mood. absent: Agitated - Skin Skin Exam: Warm. absent: Cyanosis Assessment and Plan (1) HENRIK (acute kidney injury) Assessment & Plan: Likely hemodynamically mediated in the setting of being on diuretics and ARB; renal function improved with IVF and holding above meds; -continue gentle IVF w/ NS at 60 cc/hr; -continue to hold losartan and diuretic; -avoid nephrotoxic agents (eg. NSAIDS); Status: Acute (2) CKD (chronic kidney disease) stage 3, GFR 30-59 ml/min Assessment & Plan: Baseline creatinine appears to be 1.8 from outpatient labs; etiology of CKD unclear; awaiting total urine protein/creatinine level; -bladder US w/ post-void residual volume measurement; Status: Chronic (3) HTN (hypertension) Assessment & Plan: BP controlled with patient off meds; monitor for now; Status: Chronic
--- NOTE | 2018-05-11 22:54 | CARD ---
APPROVED REPORT EKG Measurement Heart [id number] <Conclusion> Sinus bradycardia Abnormal ECG
--- NOTE | 2018-05-12 06:52 | CP.PCM.PN ---
Subjective - Date & Time of Evaluation Date of Evaluation: 05/12/18 Time of Evaluation: 06:15 - Subjective Subjective: Awake, no distress,denies chest pain, denies shortness of breath Reason for consultation and follow up: Cardiac evaluation,bradycardia (44/min), came to [place] due to abnormal lab results (elevated BUN/creatinine) history of hypertension,CVA (2008) no residual.former smoker. Seen and examined by me and Dr. Bhandari Objective - Vital Signs/Intake and Output Vital Signs (last 24 hours): Temp Pulse Resp BP Pulse Ox 98.1 F 63 16 125/41 L 100 05/11/18 21:55 05/11/18 21:55 05/11/18 21:55 05/11/18 21:55 05/11/18 21:55 - Medications Medications: Current Medications Aspirin (Aspirin Chewable) 81 mg PO DAILY [facility] Last Admin: 05/11/18 09:30 Dose: Not Given Atorvastatin Calcium (Lipitor) 10 mg PO DIN [facility] Last Admin: 05/11/18 18:30 Dose: 10 mg Sodium Chloride (Sodium Chloride 0.9%) 1,000 mls @ 60 mls/hr IV .[id number] [facility] Last Admin: 05/10/18 22:49 Dose: 60 mls/hr - Labs Labs: 05/11/18 07:00 05/11/18 07:00 PT 10.8 SECONDS (9.4-12.5) 05/10/18 12:00 INR 0.94 (0.93-1.08) 05/10/18 12:00 APTT 29.4 Seconds (25.1-36.5) 05/10/18 12:00 - Constitutional Appears: No Acute Distress - Head Exam Head Exam: NORMOCEPHALIC - Eye Exam Eye Exam: Normal appearance - ENT Exam ENT Exam: Mucous Membranes Moist - Respiratory Exam Respiratory Exam: Clear to Ausculation Bilateral, NORMAL BREATHING PATTERN - Cardiovascular Exam Cardiovascular Exam: +S1, +S2 - GI/Abdominal Exam GI & Abdominal Exam: Soft, Normal Bowel Sounds - Extremities Exam Extremities Exam: Normal Capillary Refill - Neurological Exam Neurological Exam: Alert, Awake, Oriented x3 - Psychiatric Exam Psychiatric exam: Normal Affect, Normal Mood - Skin Skin Exam: Intact, Normal Color, Warm Assessment and Plan - Assessment and Plan (Free Text) Assessment: An 82 year old male, [place] who was sent to the ER by PMD due to abnormal BUN /Creatinine, laboratory results, for further work up. He complained of generalized increasing weakness for the past 3 days. He denies difficulty in urination, change in frequency of urination or any abnormal symptoms. History of hypertension,CHF CVA, no residual or weakness.former smoker. Uses cane to walk. Anemia, GI work up. Plan: Feels okay ECHO done yesterday awaiting final result Heart rate 60/min Stable blood pressure Anemia, GI work up EGD done yesterday, Hiatal hernia,Schatzki ring, multiple gastric body and antral ulcers, thickened doudenal fold On ASA 325 mg daily, Lipitor 10 mg daily,Plavix 75 mg daily BUN/Creatinine improved after hydration Continue current treatment Continue current medications Will follow up Plan and treatment discussed with Dr. Bhandari
[2018-05-12 07:46] LABS: HEMOGLOBIN 7.5 g/dL (14.0-18.0); MEAN CELL VOLUME 86.1 fl (80.0-105.0); MEAN CORPUSCULAR HEMOGLOBIN 28.1 pg (25.0-35.0); MEAN CORPUSCULAR HGB CONC 32.6 g/dl (31.0-37.0); MEAN PLATELET VOLUME 10.2 fl (7.0-11.0); RBC 2.67 10^6/uL (3.5-6.1); RED CELL DISTRIBUTION WIDTH 13.5 % (11.5-14.5); WHITE BLOOD COUNT 6.5 10^3/ul (4.5-11.0)
[2018-05-12 08:06] LABS: CALCIUM 8.4 mg/dL (8.4-10.5)
--- NOTE | 2018-05-12 08:26 | CP.PCM.PN ---
<Sultana Booth - Last Filed: 05/12/18 17:45> Subjective - Date & Time of Evaluation Date of Evaluation: 05/12/18 Time of Evaluation: 07:00 - Subjective Subjective: GI Progress Note for Beatriz Renteria PGY2 Patient seen and examined at bedside. There were no acute overnight events as per nursing staff. Patient reports feeling well this morning. He denies chest pain, shortness of breath, abdominal pain, nausea/vomiting/diarrhea, fever/ chills, numbness/tingling, dysuria or hematuria. Objective - Vital Signs/Intake and Output Vital Signs (last 24 hours): Temp Pulse Resp BP Pulse Ox 98.1 F 63 16 125/41 L 100 05/11/18 21:55 05/11/18 21:55 05/11/18 21:55 05/11/18 21:55 05/11/18 21:55 - Medications Medications: Current Medications Aspirin (Aspirin Chewable) 81 mg PO DAILY [facility] Last Admin: 05/11/18 09:30 Dose: Not Given Atorvastatin Calcium (Lipitor) 10 mg PO DIN [facility] Last Admin: 05/11/18 18:30 Dose: 10 mg Sodium Chloride (Sodium Chloride 0.9%) 1,000 mls @ 60 mls/hr IV .[id number] [facility] Last Admin: 05/10/18 22:49 Dose: 60 mls/hr - Labs Labs: 05/12/18 07:20 05/12/18 07:20 PT 10.8 SECONDS (9.4-12.5) 05/10/18 12:00 INR 0.94 (0.93-1.08) 05/10/18 12:00 APTT 29.4 Seconds (25.1-36.5) 05/10/18 12:00 - Constitutional Appears: No Acute Distress - Head Exam Head Exam: ATRAUMATIC, NORMAL INSPECTION, NORMOCEPHALIC - Eye Exam Eye Exam: Normal appearance, PERRL Pupil Exam: NORMAL ACCOMODATION, PERRL - ENT Exam ENT Exam: Mucous Membranes Moist - Neck Exam Neck Exam: Full ROM - Respiratory Exam Respiratory Exam: Clear to Ausculation Bilateral, NORMAL BREATHING PATTERN. absent: Rales, Rhonchi, Wheezes - Cardiovascular Exam Cardiovascular Exam: REGULAR RHYTHM, +S1, +S2. absent: Gallop, Rubs, Murmur - GI/Abdominal Exam GI & Abdominal Exam: Soft, Normal Bowel Sounds. absent: Rigid, Tenderness, Mass , Rebound - Extremities Exam Extremities Exam: absent: Pedal Edema - Neurological Exam Neurological Exam: Alert, Awake, CN II-XII Intact - Skin Skin Exam: Dry, Warm Assessment and Plan - Assessment and Plan (Free Text) Assessment: This is an 82yo make with past medical history of HTN and CVA who was admitted for 1. Anemia - Can be multifactorial - patient was on ASA and Plavix at home 2. Gastric ulcer Non-bleeding, forest Class III seen on EGD - No biopsy taking 3. HENRIK (improving) - Cr 1.8 3. HTN 4. CVA in 2008- no other stroke since then 5. Bradycardia Plan: CT A/P reviewed. Recommend ASA 81mg for CVA prevention. Recommend to d/c Plavix. Continue PPI. Will continue to monitor H/H and kidney function. Nephro is on consult. Resume diet. Patient can have colonoscopy as outpatient. Will discuss with PMD. Case seen, discussed and reviewed with Dr. Flako Booth PGY2 <Azam Arriola V - Last Filed: 05/13/18 23:10> Objective - Vital Signs/Intake and Output Vital Signs (last 24 hours): Temp Pulse Resp BP Pulse Ox 98 F 60 20 140/50 L 99 05/13/18 06:00 05/13/18 06:00 05/13/18 06:00 05/13/18 06:00 05/13/18 06:00 - Labs Labs: 05/12/18 07:20 05/12/18 07:20 PT 10.8 SECONDS (9.4-12.5) 05/10/18 12:00 INR 0.94 (0.93-1.08) 05/10/18 12:00 APTT 29.4 Seconds (25.1-36.5) 05/10/18 12:00 Attending/Attestation - Attestation I have personally seen and examined this patient.: Yes I have fully participated in the care of the patient.: Yes I have reviewed all pertinent clinical information, including history, physical exam and plan: Yes Notes (Text): p 05/13/18 23:10
--- NOTE | 2018-05-12 08:28 | PN ---
DATE: 05/11/2018 SUBJECTIVE: The patient is seen and examined at the bedside, looking comfortable, sitting on the chair, status post endoscopy. No shortness of breath. No nausea, vomiting, or diarrhea. Still feeling fatigued and tired. No headache. No dizziness. No chest pain or palpitation. PHYSICAL EXAMINATION: VITAL SIGNS: Temperature 98.2, pulse 50, respiratory rate 20, blood pressure 130/40, pulse oximetry 98%. HEENT: Head normocephalic, atraumatic. Eyes, PERRLA. Extraocular muscles intact. Conjunctivae clear. Nose patent. Mucous membrane moist. NECK: Supple. No carotid bruit. No JVD or thyromegaly. CHEST: Bilaterally symmetrical. HEART: S1 and S2 positive. LUNGS: Clear to auscultation. ABDOMEN: Soft. Bowel sounds present. No organomegaly. EXTREMITIES: No edema. No cyanosis. NEUROLOGIC: The patient is awake and alert, moving all 4 extremities. No focal deficits. MEDICATIONS: Aspirin, Lipitor, NS. LABORATORY DATA: White blood cell is 5.9, hemoglobin 8.3, hematocrit 24.9, platelets 145. Sodium 145, potassium 4.8. BUN 62, creatinine 1.8. Glucose 85. ASSESSMENT AND PLAN: Mr. Joanne Thakkar is an 82-year-old male with anemia, renal insufficiency, hyperkalemia, anemia acute on chronic, acute kidney injury , chronic kidney disease, hypertension, in the setting of being on diuretics . Liver function improved with IV fluid and is holding above medications. Continue gentle IV hydration with NS. Continue to hold losartan and diuretics. Avoid nephrotoxic agents. Seen by Dr. Arriola. He did upper endoscopy. Shows esophageal landmark mild Schatzki's ring, 1 cm hiatal hernia, nonbleeding gastric ulcers with ulcers clean base, Dae class 3, granular mucosa of the duodenal bulb. No specimen collected because patient is on Plavix and aspirin. Bladder ultrasound done. Results are pending. Seen by the nurse practitioner Amie. According to the patient, he has sleeping problem. Abnormal BUN and creatinine. History of cerebrovascular accident, congestive heart failure, hypertension, weakness, former smoker. Echo to see left ventricular function. He has bradycardia, sometimes it is 58, asymptomatic. Stable blood pressure. Discontinue beta patsy and Lopressor. Anemia, gastrointestinal workup. Continue aspirin. Esophagogastroduodenoscopy done. Out of bed, physical therapy. Gastrointestinal and deep venous thrombosis prophylaxis. Repeat labs. We will follow up. Iveth Cramer MD MTDD
--- NOTE | 2018-05-12 09:26 | US ---
EXAM: US Pelvis Complete CLINICAL HISTORY: 82 years old, male; Signs and symptoms; Bladder and retention of urine; Urine retention; Additional info: Check post void residual volume, prostate size TECHNIQUE: Real-time pelvic ultrasound (complete) with image documentation. COMPARISON: CT - ABD PELVIS PO CONTRAST ONLY 2018-05-10 17:09 FINDINGS: Prostate: The prostate is enlarged and heterogenous in appearance. Correlation with PSA to exclude malignancy. The prostate measures 5.1 x 3.4 x 4.5 cm with a volume of 41.3 cc. Seminal vessicles: Not identified due to lack of a sufficient acoustic window. Bladder: The urinary bladder is well distended without evidence for calculus , masses or wall thickening. The pre-and post void volumes are 509 and 45 cc. Bilateral ureteral jets are not identified on the current study. Free fluid: There is no evidence of free intraperitoneal fluid. IMPRESSION: 1. The urinary bladder is well distended without evidence for calculus , masses or wall thickening. The pre-and post void volumes are 509 and 45 cc. Bilateral ureteral jets are not identified on the current study. 2. The prostate is enlarged and heterogenous in appearance. Correlation with PSA to exclude malignancy. The prostate measures 5.1 x 3.4 x 4.5 cm with a volume of 41.3 cc.
--- NOTE | 2018-05-12 17:03 | CARD ---
APPROVED REPORT EXAM: Two-dimensional and M-mode echocardiogram with Doppler and color Doppler. INDICATION Dyspnea 2D DIMENSIONS Left Atrium (2D)3.7 (1.6-4.0cm)IVSd0.9 (0.7-1.1cm) LVDd4.5 (3.9-5.9cm)PWd1.1 (0.7-1.1cm) LVDs2.8 (2.5-4.0cm)FS (%) 37.1 % LVEF (%)67.3 (>50%) M-Mode DIMENSIONS Aortic Root3.00 (2.2-3.7cm)Aortic Cusp Exc.1.40 (1.5-2.0cm) Aortic Valve AoV Peak Ikjhjsyq407.0cm/Magaly Peak GR.8mmHg Mitral Valve MV E Vddsvylv29.7cm/sMV A Gcmigdpz960.0cm/sE/A ratio0.9 TDI E/Lateral E'0.0E/Medial E'0.0 Tricuspid Valve TR Peak Ugwacems444qq/sRAP [id number] Peak Gr.21mmHg [id number] LEFT VENTRICLE The left ventricle is normal size. There is normal left ventricular wall thickness. The left ventricular function is normal.EF-65% There is normal LV segmental wall motion. Transmitral Doppler flow pattern is Grade III-reversible restrictive diastolic dysfunction. No left ventricle thrombus noted on this study. There is no ventricular septal defect visualized. There is no left ventricular aneurysm. There is no mass noted in the left ventricle. RIGHT VENTRICLE The right ventricle is normal size. There is normal right ventricular wall thickness. The right ventricular systolic function is normal. ATRIA The left atrium size is normal. The right atrium size is normal. The interatrial septum is intact with no evidence for an atrial septal defect. AORTIC VALVE The aortic valve is thickened but opens well. No aortic regurgitation is present. There is no aortic valvular stenosis. There is no aortic valvular vegetation. MITRAL VALVE The mitral valve is thickened but opens well. Mitral regurgitation is mild. There is no mitral valve stenosis. GREAT VESSELS The aortic root is normal in size. The ascending aorta is normal in size. The pulmonary artery is normal. The IVC is normal in size and collapses >50% with inspiration. PERICARDIAL EFFUSION There is no pleural effusion. There is no pericardial effusion. <Conclusion> Normal Chamber Size. EF-65% Mild MR/Tr RVSp-31 mmof hg. no vegetation or thrombus noted.
--- NOTE | 2018-05-12 19:43 | CP.PCM.PN ---
Subjective - Date & Time of Evaluation Date of Evaluation: 05/12/18 Time of Evaluation: 13:00 - Subjective Subjective: 82 yo M w/ pmh of htn, CHF, s/p CVA, and CKD, admitted for HENRIK; s/p EGD yesterday showing non-bleeding gastric ulcers; reports feeling well; no shortness of breath, nausea/vomiting; tolerating diet well; gets some intermittent leg swelling; Objective - Vital Signs/Intake and Output Vital Signs (last 24 hours): Temp Pulse Resp BP Pulse Ox 98.5 F 48 L 20 123/47 L 100 05/12/18 14:00 05/12/18 14:00 05/12/18 14:00 05/12/18 14:00 05/12/18 14:00 - Medications Medications: Current Medications Aspirin (Aspirin Chewable) 81 mg PO DAILY [facility] Last Admin: 05/12/18 10:35 Dose: 81 mg Atorvastatin Calcium (Lipitor) 10 mg PO DIN [facility] Last Admin: 05/12/18 17:52 Dose: 10 mg - Labs Labs: 05/12/18 07:20 05/12/18 07:20 PT 10.8 SECONDS (9.4-12.5) 05/10/18 12:00 INR 0.94 (0.93-1.08) 05/10/18 12:00 APTT 29.4 Seconds (25.1-36.5) 05/10/18 12:00 - Constitutional Appears: Well, No Acute Distress - Eye Exam Eye Exam: Normal appearance. absent: Scleral icterus - ENT Exam ENT Exam: Mucous Membranes Moist - Respiratory Exam Respiratory Exam: Clear to Ausculation Bilateral. absent: Rales, Respiratory Distress - Cardiovascular Exam Cardiovascular Exam: RRR, +S1, +S2. absent: Gallop, JVD - GI/Abdominal Exam GI & Abdominal Exam: Soft. absent: Distended, Tenderness - Extremities Exam Additional comments: minimal lower leg edema; - Neurological Exam Neurological Exam: Alert, Awake - Psychiatric Exam Psychiatric exam: Normal Affect, Normal Mood. absent: Agitated - Skin Skin Exam: Warm. absent: Cyanosis Assessment and Plan (1) HENRIK (acute kidney injury) Assessment & Plan: HENRIK on CKD; resolving; appears hemodynamically mediated with patient on diuretic and ARB as outpatient; improved with IVF; mild non-gap acidosis from NS IVF; otherwise stable volume and electrolyte status; normal post-void residual volume on bladder US (although heterogeneously enlarged prostate present, can f/u as outpatient); -d/c IVF; -still awaiting random urine for protein/creatinine (ruling out non-albumin proteinuria); -avoid tight BP control (<140/90 is reasonable given his age); -avoid nephrotoxic agents (NSAIDS, phosphate enema, etc); Status: Acute (2) CKD (chronic kidney disease) stage 3, GFR 30-59 ml/min Assessment & Plan: Likely due to underlying renovascular disease; see above; Status: Chronic (3) HTN (hypertension) Assessment & Plan: Low diastolic BP despite having received IVF; currently off all anti-htn agents , continue to hold; Status: Chronic (4) CHF (congestive heart failure) Assessment & Plan: Currently asymptomatic; echo indicative of diastolic dysfunction; -recommend to avoid diuresis for mild peripheral edema; monitor respiratory status (tolerated IVF well); Status: Suspected (5) Anemia Assessment & Plan: Iron replete; EGD findings noted; given dose of aranesp 60 mcg earlier this week , may need to continue periodically as outpatient; Status: Acute
--- NOTE | 2018-05-13 01:22 | PN ---
DATE: 05/12/2018 SUBJECTIVE: The patient was seen and examined on the bedside on 05/12/2018, sitting on the chair. No acute event happened overnight. No nausea, vomiting, diarrhea. No hematuria or hematochezia. No swelling of the leg. Fatigue is better. No numbness, tingling, dysuria or hematuria, fever or chills. PHYSICAL EXAMINATION: VITAL SIGNS: Temperature 98.1, pulse 63, respiratory rate 16, blood pressure 125/45, pulse oximetry 100. HEENT: Head normocephalic, atraumatic. Eyes PERRLA. Extraocular muscles intact. Conjunctivae clear. Nose patent. Mucous membrane moist. NECK: Supple. No carotid bruit. No JVD or thyromegaly. CHEST: Bilaterally symmetrical. HEART: S1 and S2 positive. LUNGS: Clear to auscultation. ABDOMEN: Soft. Bowel sounds positive. No organomegaly. EXTREMITIES: No edema. No cyanosis. NEUROLOGICAL: The patient is awake and alert. Moving all 4 extremities. No focal deficits. MEDICATIONS: Aspirin, atorvastatin, NS. LABORATORY DATA: White blood cells 6.5, hemoglobin 7.5, hematocrit 23, platelets 134. Sodium 146, potassium 4.5, BUN 47, creatinine 1.5, glucose 76. ASSESSMENT AND PLAN: Mr. Joanne Thakkar, 82-year-old male with anemia; hyperchloremia; renal insufficiency, improving shortly after hydration; history of hypertension; cerebrovascular accident; anemia looks like multifactorial. The patient was on aspirin and Plavix at home. Gastric ulcers, nonbleeding, class 3 seen on esophagogastroduodenoscopy. No biopsy taken because the patient was on aspirin and Plavix. Acute kidney injury, creatinine 1.8. Bradycardia. CT AP reviewed. Recommended aspirin, cerebrovascular accident prevention. Recommended to discontinue Plavix. Continue proton pump inhibitor. We will continue monitor H and H, kidney functions. Nephrology is on the case. Resume diet. Immediate colonoscopy can be done as outpatient. Length of time discussion done with Dr. Arriola. I appreciated Dr. Arriola's input. Seen by Dr. Amarjit Spencer and journeyman electrician, Dr. Bhandari. Anemia looks like iron deficiency. Got doses of Aranesp earlier this week, may need to continue periodically as outpatient. Gastrointestinal, deep venous thrombosis prophylaxis. Repeat labs. Length of time discussion done with the patient. We will follow up. Iveth Cramer MD
[2018-05-13 08:00] VITALS: BP 140/50; PULSE 60; RESP 20; TEMP 98; O2SAT 99
[2018-05-13] MEDS ORDERED: Pantoprazole 40 mg EC Tab PO SCH (08:00)
--- NOTE | 2018-05-13 08:17 | CP.PCM.PN ---
Subjective - Date & Time of Evaluation Date of Evaluation: 05/13/18 Time of Evaluation: 06:55 - Subjective Subjective: Comfortable,no distress,denies chest pain, denies shortness of breath Reason for consultation and follow up: Cardiac evaluation,bradycardia (44/min), came to [facility] due to abnormal lab results (elevated BUN/creatinine) history of hypertension,CVA (2008) no residual.former smoker. Seen and examined by me and Dr. Bhandari Objective - Vital Signs/Intake and Output Vital Signs (last 24 hours): Temp Pulse Resp BP Pulse Ox 98 F 60 20 140/50 L 99 05/13/18 06:00 05/13/18 06:00 05/13/18 06:00 05/13/18 06:00 05/13/18 06:00 Intake and Output: 05/13/18 05/13/18 06:59 18:59 Intake Total 740 Balance 740 - Medications Medications: Current Medications Aspirin (Aspirin Chewable) 81 mg PO DAILY [facility] Last Admin: 05/12/18 10:35 Dose: 81 mg Atorvastatin Calcium (Lipitor) 10 mg PO DIN [facility] Last Admin: 05/12/18 17:52 Dose: 10 mg Pantoprazole Sodium (Protonix Ec Tab) 40 mg PO ACB [facility] - Labs Labs: 05/12/18 07:20 05/12/18 07:20 PT 10.8 SECONDS (9.4-12.5) 05/10/18 12:00 INR 0.94 (0.93-1.08) 05/10/18 12:00 APTT 29.4 Seconds (25.1-36.5) 05/10/18 12:00 - Constitutional Appears: No Acute Distress - Head Exam Head Exam: NORMOCEPHALIC - Eye Exam Eye Exam: Normal appearance - ENT Exam ENT Exam: Mucous Membranes Moist - Respiratory Exam Respiratory Exam: Clear to Ausculation Bilateral, NORMAL BREATHING PATTERN - Cardiovascular Exam Cardiovascular Exam: +S1, +S2 - GI/Abdominal Exam GI & Abdominal Exam: Soft, Normal Bowel Sounds - Extremities Exam Extremities Exam: Normal Capillary Refill - Neurological Exam Neurological Exam: Alert, Awake, Oriented x3 - Psychiatric Exam Psychiatric exam: Normal Affect, Normal Mood - Skin Skin Exam: Intact, Normal Color, Warm Assessment and Plan - Assessment and Plan (Free Text) Assessment: An 82 year old male, [place]ian who was sent to the ER by PMD due to abnormal BUN/ Creatinine, laboratory results, for further work up. He complained of generalized increasing weakness for the past 3 days. He denies difficulty in urination, change in frequency of urination or any abnormal symptoms. History of hypertension,CHF CVA, no residual or weakness.former smoker. Uses cane to walk. Anemia, Renal and GI work up.EGD done Hiatal hernia,Schatzki ring, multiple gastric body and antral ulcers, thickened doudenal fold. outpatient colonoscopy. Plan: Cardiac status stable Heart rate stable Stable blood pressure Renal and GI work up/on consult On ASA 325 mg daily, Lipitor 10 mg daily Out patient colonoscopy per GI Continue current treatment Continue current medications Discharge planning Will follow up Plan and treatment discussed with Dr. Bhandari
--- NOTE | 2018-05-13 08:56 | CP.PCM.PN ---
<Rylie Yee - Last Filed: 05/13/18 10:25> Subjective - Date & Time of Evaluation Date of Evaluation: 05/13/18 Time of Evaluation: 08:10 - Subjective Subjective: S&E at bedside this am, eating breakfast, Denies N/V or abdominal pain. Had formed BM yesterday. No acute overnight events or new complaints. No reports of overt GI bleeding. Objective - Vital Signs/Intake and Output Vital Signs (last 24 hours): Temp Pulse Resp BP Pulse Ox 98 F 60 20 140/50 L 99 05/13/18 06:00 05/13/18 06:00 05/13/18 06:00 05/13/18 06:00 05/13/18 06:00 Intake and Output: 05/13/18 05/13/18 06:59 18:59 Intake Total 740 Balance 740 - Medications Medications: Current Medications Aspirin (Aspirin Chewable) 81 mg PO DAILY [facility] Last Admin: 05/12/18 10:35 Dose: 81 mg Atorvastatin Calcium (Lipitor) 10 mg PO DIN [facility] Last Admin: 05/12/18 17:52 Dose: 10 mg Pantoprazole Sodium (Protonix Ec Tab) 40 mg PO ACB [facility] - Labs Labs: 05/12/18 07:20 05/12/18 07:20 PT 10.8 SECONDS (9.4-12.5) 05/10/18 12:00 INR 0.94 (0.93-1.08) 05/10/18 12:00 APTT 29.4 Seconds (25.1-36.5) 05/10/18 12:00 - Constitutional Appears: No Acute Distress - Head Exam Head Exam: NORMOCEPHALIC - Eye Exam Eye Exam: Normal appearance. absent: Scleral icterus - ENT Exam ENT Exam: Mucous Membranes Moist - Neck Exam Neck Exam: Normal Inspection - Respiratory Exam Respiratory Exam: Clear to Ausculation Bilateral, NORMAL BREATHING PATTERN. absent: Respiratory Distress - Cardiovascular Exam Cardiovascular Exam: +S1, +S2 - GI/Abdominal Exam GI & Abdominal Exam: Soft, Normal Bowel Sounds. absent: Guarding, Tenderness, Organomegaly, Rebound - Extremities Exam Extremities Exam: absent: Calf Tenderness, Pedal Edema - Neurological Exam Neurological Exam: Alert, Awake, Oriented x3 - Skin Skin Exam: Dry, Warm Assessment and Plan - Assessment and Plan (Free Text) Assessment: Assessment: Anemia maybe multifactoral, on ASA & Plavix at home Gastric ulcer Non-bleeding, forest Class III seen on EGD, No biopsy taking HENRIK (improving) HTN CVA in 2008- no other stroke since then Bradycardia Plan: on ASA 81mg for CVA prevention, Recommend to d/c Plavix. Continue PPI continue to monitor H/H and kidney function Nephro is on consult diet as tolerated discuss w/ patient regarding elective outpt. colonoscopy. will also need repeat egd in 6-8 weeks Seen and discussed with Dr. Arriola <Azam Arriola V - Last Filed: 05/13/18 23:09> Objective - Vital Signs/Intake and Output Vital Signs (last 24 hours): Temp Pulse Resp BP Pulse Ox 98 F 60 20 140/50 L 99 05/13/18 06:00 05/13/18 06:00 05/13/18 06:00 05/13/18 06:00 05/13/18 06:00 - Labs Labs: 05/12/18 07:20 05/12/18 07:20 PT 10.8 SECONDS (9.4-12.5) 05/10/18 12:00 INR 0.94 (0.93-1.08) 05/10/18 12:00 APTT 29.4 Seconds (25.1-36.5) 05/10/18 12:00 Attending/Attestation - Attestation I have personally seen and examined this patient.: Yes I have fully participated in the care of the patient.: Yes I have reviewed all pertinent clinical information, including history, physical exam and plan: Yes Notes (Text): p 05/13/18 23:09
--- NOTE | 2018-05-14 14:00 | PN ---
DATE OF EXAM: 05/13/2018 SUBJECTIVE: This 82-year-old male was examined at his bedside and this case was reviewed in detail with himself and nurse, Wander Zapata, registered nurse. The patient is being readied for discharge. I am seeing this patient on the request of Dr. Spencer, covering agricultural equipment sales engineer. The patient was admitted with [id number] renal insufficiency and anemia. His diuretics and KRISTIE inhibitors were held and he did receive gentle IV fluids and Aranesp. He is denying any fever, chills, chest pain or shortness of breath and when I questioned the patient, he states he has a blood pressure monitor cuff at home with which he monitors his blood pressure. PHYSICAL EXAMINATION GENERAL: He was alert and oriented x3. Denied any fever, chills, chest pain or shortness of breath. VITAL SIGNS: Temperature was 98, respirations 20, pulse 60 and blood pressure 140/50 with a pulse ox of 99% on room air. HEENT: Head: Normocephalic, atraumatic. Eyes: No icterus. Ears: Clear. Throat: Noninjected. NECK: Supple. HEART: Regular S1, S2. LUNGS: Clear. ABDOMEN: Soft. EXTREMITIES: No edema. SKIN: Without rash. NEUROLOGICAL: Intact. PSYCHOLOGICAL: Alert. VASCULAR: Legs warm to touch. LABORATORY DATA: Sodium 146, K 4.5, chloride 102, bicarb 18, BUN 47, creatinine 1.5, random blood sugar was 76. White count 6500, hemoglobin 7.5, hematocrit 23 and a platelets 134,000. Urinalysis was unremarkable, it showed no protein. PT/INR 0.94, PTT 29.4. IMPRESSION AND PLAN: An 82-year-old male with history of chronic renal insufficiency, history of chronic hypertension, hyperlipidemia, anemia of chronic renal insufficiency. The patient is showing improvement in his azotemia with the discontinuation of KRISTIE inhibitors and diuretics. As discussed with the patient and nursing, when home, he will need to monitor his blood pressure and for his PMD, Dr. Cramer to decide whether or not additional antihypertensive medication will need to be re-instituted, preferably calcium channel patsy or beta-patsy as tolerated. The patient will need outpatient monitoring for his gastrointestinal bleeding, anemia and these issues can be addressed by his PMD. A GI workup including endoscopy and colonoscopy is recommended if not completed in the recent past. All of the above was discussed in detail with the patient and nursing at bedside. All questions were answered. Mona Levine MD MTDAraceli
== END 2018-05-13 14:29 | disposition home or self-care (01) | DRG 683 ==
LOC: ED 12:52 → ERH 15:40 → 5RSO 18:24 → OBSVTOIN 05-10 23:34
PROVIDERS: ADMIT Internal Medicine; ATTEND Internal Medicine
PROC: 0DJ08ZZ Inspection of Upper Intestinal Tract, Via Natural or Artificial Opening Endoscopic (ICD-10-PCS; principal; 2018-05-11 14:45)
DX: N17.9 Acute kidney failure, unspecified (principal); I13.0 Hypertensive heart and chronic kidney disease with heart failure and stage 1 through stage 4 chronic kidney disease, or unspecified chronic kidney disease; E87.2 Acidosis; I50.9 Heart failure, unspecified; N18.3 Chronic kidney disease, stage 3 (moderate); K22.2 Esophageal obstruction; K25.9 Gastric ulcer, unspecified as acute or chronic, without hemorrhage or perforation; K44.9 Diaphragmatic hernia without obstruction or gangrene; E87.5 Hyperkalemia; D50.9 Iron deficiency anemia, unspecified; E83.39 Other disorders of phosphorus metabolism; E87.8 Other disorders of electrolyte and fluid balance, not elsewhere classified; R00.1 Bradycardia, unspecified; Z87.891 Personal history of nicotine dependence; Z86.73 Personal history of transient ischemic attack (TIA), and cerebral infarction without residual deficits; Z79.02 Long term (current) use of antithrombotics/antiplatelets; Z79.82 Long term (current) use of aspirin; Z91.19 Patient's noncompliance with other medical treatment and regimen; Z91.14 Patient's other noncompliance with medication regimen

== ENCOUNTER 2018-06-08 17:38 | Inpatient (IN) | payer OTHER ==
[2018-06-08 17:39] VITALS: BMI 20.8
--- NOTE | 2018-06-08 18:48 | ED PDOC ---
Arrival/HPI - General Chief Complaint: Abnormal Labs Time Seen by Provider: 06/08/18 18:43 Historian: Patient - History of Present Illness Narrative History of Present Illness (Text): 06/08/18 18:44 82 year old male, whose past medical history includes anemia, CVA, and hypertension, who presents to the emergency department sent by Dr. Cramer for low hemoglobin levels. Patient notes he experienced weakness, high blood pressure, and difficulty walking yesterday. Patient notes he visited Dr. Cramer , where bloodwork was done. Patient was called this morning with reports that his hemoglobin was low and was instructed to come to Emergency department. Patient notes no current pain. Patient denies any fever, chills, chest pain, shortness of breath, nausea, vomiting, diarrhea, back pain, neck pain, headache , dizziness, or any other complaints. Time/Duration: 24 hours Symptom Onset: Gradual Symptom Course: Unchanged Activities at Onset: Light Context: Home Past Medical History - Provider Review Nursing Documentation Reviewed: Yes - Infectious Disease Hx of Infectious Diseases: None - Cardiac Hx Congestive Heart Failure: Yes Hx Hypertension: Yes - Neurological HX Cerebrovascular Accident: Yes (2009) - Hematological/Oncological Hx Blood Transfusions: No Hx Blood Transfusion Reaction: No - Musculoskeletal/Rheumatological Hx Falls: No - Psychiatric Hx Substance Use: No - Anesthesia Hx Anesthesia Reactions: No Hx Malignant Hyperthermia: No Family/Social History - Physician Review Nursing Documentation Reviewed: Yes Family/Social History: Unknown Family HX Smoking Status: Former Smoker Hx Alcohol Use: Yes (former) Hx Substance Use: No Allergies/Home Meds Allergies/Adverse Reactions: Allergies No Known Allergies Allergy (Verified 05/09/18 13:01) Home Medications: Home Meds Medication Instructions Recorded Confirmed Aspirin [Aspirin EC] 325 mg PO DAILY 05/09/18 06/08/18 Allopurinol [Zyloprim] 1 tab PO BID 06/08/18 06/08/18 Furosemide [Lasix] 1 tab PO DAILY 06/08/18 06/08/18 Review of Systems - Physician Review All systems were reviewed & negative as marked: Yes - Review of Systems Constitutional: Fatigue Eyes: Normal ENT: Normal Respiratory: Normal. absent: SOB, Cough Cardiovascular: Normal. absent: Chest Pain Gastrointestinal: Normal. absent: Abdominal Pain, Diarrhea, Nausea, Vomiting Genitourinary Male: Normal. absent: Dysuria, Frequency Musculoskeletal: Other (difficulty walking). absent: Back Pain, Neck Pain Skin: Normal. absent: Rash Neurological: Normal. absent: Headache, Dizziness Endocrine: Normal Hemo/Lymphatic: Normal Psychiatric: Normal Physical Exam Vital Signs Reviewed: Yes Vital Signs Temp Pulse Resp BP Pulse Ox 06/08/18 17:59 99.5 F 64 18 176/67 H 99 Temperature: Afebrile Blood Pressure: Hypertensive Pulse: Regular Respiratory Rate: Normal Appearance: Positive for: Well-Appearing, Non-Toxic, Comfortable Pain Distress: None Mental Status: Positive for: Alert and Oriented X 3 - Systems Exam Head: Present: Atraumatic, Normocephalic Pupils: Present: PERRL Extroacular Muscles: Present: EOMI Conjunctiva: Present: Normal Mouth: Present: Moist Mucous Membranes Neck: Present: Normal Range of Motion Respiratory/Chest: Present: Clear to Auscultation, Good Air Exchange. No: Respiratory Distress, Accessory Muscle Use Cardiovascular: Present: Regular Rate and Rhythm, Normal S1, S2. No: Murmurs Abdomen: No: Tenderness, Distention, Peritoneal Signs Back: Present: Normal Inspection Upper Extremity: Present: Normal Inspection. No: Cyanosis, Edema Lower Extremity: Present: Edema (bilateral foot edema) Neurological: Present: GCS=15, CN II-XII Intact, Speech Normal Skin: Present: Warm, Dry, Normal Color. No: Rashes Psychiatric: Present: Alert, Oriented x 3, Normal Insight, Normal Concentration Medical Decision Making ED Course and Treatment: 06/08/18 18:52 Impression: 82 year old male presents to the emergency department sent by Dr. Cramer for low hemoglobin levels. Plan: -- Labs -- EKG -- CXR -- Pepcid -- Reassess and disposition Progress Notes: 06/08/18 21:[address] Cramer, who requests pt to be admitted to her service for symptomatic anemia. - Lab Interpretations Lab Results: 06/08/18 19:01 06/08/18 19:01 Lab Results 06/08/18 19:01: Sodium 144, Potassium 4.0, Chloride 113 H, Carbon Dioxide 22, Anion Gap 13, BUN 32 H, Creatinine 1.7 H, Est GFR ( Amer) 47, Est GFR ( Non-Af Amer) 39, Random Glucose 106, Calcium 8.3 L, Total Bilirubin 0.3, AST 19 , ALT 17, Alkaline Phosphatase 65, Lactate Dehydrogenase 744 H, Total Creatine Kinase 110, Troponin I < 0.01, Total Protein 6.4, Albumin 3.3, Globulin 3.1, Albumin/Globulin Ratio 1.0 L, Amylase 205 H, Lipase 352 H 06/08/18 19:01: PT 10.9, INR 0.96, APTT 30.0 06/08/18 19:01: WBC 6.6, RBC 2.81 L, Hgb 7.7 L, Hct 24.0 L, MCV 85.4, MCH 27.4, MCHC 32.1, RDW 14.3, Plt Count 170, MPV 10.0, Gran % 67.7, Lymph % (Auto) 17.1 L , [place] % (Auto) 5.6, Eos % (Auto) 8.8 H, Baso % (Auto) 0.8, Gran # 4.44, Lymph # (Auto) 1.1 L, [place] # (Auto) 0.4, Eos # (Auto) 0.6, Baso # (Auto) 0.05 - RAD Interpretation Radiology Orders: 06/08/18 18:46 CHEST PORTABLE [RAD] Stat - Medication Orders Current Medication Orders: Discontinued Medications Famotidine (Pepcid) 20 mg IVP STAT STA Stop: 06/08/18 18:46 Last Admin: 06/08/18 18:52 Dose: 20 mg IVP Administration Document 06/08/18 18:52 OCS (Rec: 06/08/18 18:52 OCS [id number]) Charges for Administration # of IVP Administrations 1 - Scribe Statement The provider has reviewed the documentation as recorded by the Leeroyibnew Castillo All medical record entries made by the Leeroyibnew were at my direction and personally dictated by me. I have reviewed the chart and agree that the record accurately reflects my personal performance of the history, physical exam, medical decision making, and the department course for this patient. I have also personally directed, reviewed, and agree with the discharge instructions and disposition. Disposition/Present on Arrival - Present on Arrival History of DVT/PE: No History of Uncontrolled Diabetes: No Urinary Catheter: No History of Decub. Ulcer: No History Surgical Site Infection Following: None - Disposition Referrals: Shoaib,Iveth, MD [Primary Care Provider] - Follow up with primary Forms: [employer] (Japanese)
[2018-06-08 19:14] LABS: BASO # 0.05 K/mm3 (0.0-2.0); BASO % 0.8 % (0.0-3.0); EOS # 0.6 (0.0-0.7); EOS % 8.8 % (1.5-5.0); GRAN # 4.44 (1.4-6.5); GRAN % 67.7 % (50.0-68.0); HEMOGLOBIN 7.7 g/dL (14.0-18.0); LYMPH # 1.1 (1.2-3.4); LYMPH % 17.1 % (22.0-35.0); MEAN CELL VOLUME 85.4 fl (80.0-105.0); MEAN CORPUSCULAR HEMOGLOBIN 27.4 pg (25.0-35.0); MEAN CORPUSCULAR HGB CONC 32.1 g/dl (31.0-37.0); MONO # 0.4 (0.1-0.6); MONO % 5.6 % (1.0-6.0); RBC 2.81 10^6/uL (3.5-6.1); RED CELL DISTRIBUTION WIDTH 14.3 % (11.5-14.5); WHITE BLOOD COUNT 6.6 10^3/ul (4.5-11.0)
[2018-06-08 19:26] LABS: ALBUMIN 3.3 g/dL (3.0-4.8); ALT/SGPT 17 U/L (7-56); AMYLASE 205 U/L (35-125); AST/SGOT 19 U/L (17-59); BLOOD UREA NITROGEN 32 mg/dL (7-21); CALCIUM 8.3 mg/dL (8.4-10.5); GFR AFRICAN-AMERICAN 47; GFR NON-AFRICAN AMERICAN 39; INR 0.96 (0.93-1.08); LIPASE 352 U/L (23-300); PROTHROMBIN TIME 10.9 SECONDS (9.4-12.5)
[2018-06-08 19:34] LABS: TROPONIN I < 0.01 ng/mL
--- NOTE | 2018-06-08 20:15 | CARD ---
APPROVED REPORT Date of service: 06/08/2018 EKG Measurement Heart [id number] <Conclusion> Normal sinus rhythm Normal ECG
[2018-06-08] MEDS ORDERED: Pneumococcal 23-Valent Vaccine IM ONE (22:55)
[2018-06-09 00:09] LABS: IRON 38 ug/dL (45-180)
[2018-06-09 00:19] LABS: % IRON SATURATION 17 % (20-55); TOTAL IRON BINDING CAPACITY 224 ug/dL (261-462)
[2018-06-09 07:55] LABS: MEAN CELL VOLUME 83.4 fl (80.0-105.0); MEAN CORPUSCULAR HEMOGLOBIN 27.7 pg (25.0-35.0); MEAN CORPUSCULAR HGB CONC 33.2 g/dl (31.0-37.0); RBC 3.5 10^6/uL (3.5-6.1); RED CELL DISTRIBUTION WIDTH 14.5 % (11.5-14.5); WHITE BLOOD COUNT 7.9 10^3/ul (4.5-11.0)
[2018-06-09 08:04] LABS: HEMOGLOBIN 9.7 g/dL (14.0-18.0)
[2018-06-09 08:09] LABS: CALCIUM 8.3 mg/dL (8.4-10.5)
--- NOTE | 2018-06-09 09:26 | RAD ---
Date of service: 06/08/2018 HISTORY: r/o infiltrate COMPARISON: 05/10/2018 FINDINGS: LUNGS: No active pulmonary disease. PLEURA: No significant pleural effusion identified, no pneumothorax apparent. CARDIOVASCULAR: Normal. OSSEOUS STRUCTURES: No significant abnormalities. VISUALIZED UPPER ABDOMEN: Normal. OTHER FINDINGS: None. IMPRESSION: No active disease.
--- NOTE | 2018-06-09 13:31 | CP.PCM.CON ---
<LeobardoSultana - Last Filed: 06/09/18 14:41> History of Present Illness - History of Present Illness History of Present Illness: Nephrology Consult Note For Beatriz Pete PGY3 This is an 82yo make with past medical history of HTN, CVA, CKD IIIb who was sent in by PMD for abnormal lab values. Patient reports he has been feeling weak for the past couple of days. He also complained of acute gout attack in his R hand the last week and was taking colchicine. He was eating a lot of seafood last week. His R hand has improved after Colchicine. He has noticed his BP has been high. He denies any issues with urination. He takes Lasix 20mg at home once per day for his BP. He denies any overt bleeding. He denies chest pain , shortness of breath, nausea/vomiting/diarrhea, numbness/tingling, fever/ chills. Past medical history: HTN, CVA (2008), CKD IIIb, EGD 04/2018 gastric ulcer [place] class III, anemia normocytic Past surgical history: appendectomy Home meds: Reviewed as per MAR Allergies: NKDA Social history: Denies EtOH use, former smoker, denies drug use. Lives with and daughter. Walks with cane Family history: denies history of cancer Review of Systems - Review of Systems All systems: reviewed and no additional remarkable complaints except Review of Systems: 12 point ROS reviewed as per HPI and is otherwise negative. Past Patient History - Infectious Disease Hx of Infectious Diseases: None - Past Social History Smoking Status: Former Smoker - CARDIAC Hx Cardiac Disorders: Yes (sinus [place]pen) Hx Congestive Heart Failure: Yes Hx Hypercholesterolemia: Yes Hx Hypertension: Yes Hx Peripheral Edema: Yes (b/l feet +3 pitting, L hand +1 pitting) - PULMONARY Hx Respiratory Disorders: No - NEUROLOGICAL HX Cerebrovascular Accident: Yes (2008) Other/Comment: cva 2009 pt had left leg weakness went to pt and resolved - HEENT Hx HEENT Problems: Yes ([place] b/l ears, eyeglasses) - RENAL Hx Chronic Kidney Disease: Yes (stage 3) Other/Comment: acute kidney injury - ENDOCRINE/METABOLIC Hx Endocrine Disorders: No - HEMATOLOGICAL/ONCOLOGICAL Hx Blood Disorders: Yes Hx Anemia: Yes Other/Comment: high uric acit - INTEGUMENTARY Hx Dermatological Problems: Yes Other/Comment: slight redness to both feet, and left hand, dry toenails - MUSCULOSKELETAL/RHEUMATOLOGICAL Hx Falls: No - GASTROINTESTINAL Hx Gastrointestinal Disorders: No - GENITOURINARY/GYNECOLOGICAL Hx Genitourinary Disorders: No - PSYCHIATRIC Hx Substance Use: No - SURGICAL HISTORY Hx Surgeries: No - ANESTHESIA Hx Anesthesia Reactions: No Hx Malignant Hyperthermia: No Meds Allergies/Adverse Reactions: Allergies Allergy/AdvReac Type Severity Reaction Status Date / Time No Known Allergies Allergy Verified 05/09/18 13:01 - Medications Medications: Current Medications Acetaminophen (Tylenol 325mg Tab) 650 mg PO Q4H PRN PRN Reason: Fever >100.4 F Acetaminophen (Tylenol 325mg Tab) 650 mg PO Q4H PRN PRN Reason: Pain, moderate (4-7) Allopurinol (Zyloprim) 100 mg PO BID [facility] Last Admin: 06/09/18 09:40 Dose: 100 mg Atorvastatin Calcium (Lipitor) 10 mg PO DIN [facility] Famotidine (Pepcid) 20 mg PO HS [facility] Furosemide (Lasix) 40 mg IVP Q12 [facility] Last Admin: 06/09/18 09:38 Dose: 40 mg Physical Exam - Constitutional Appears: No Acute Distress - Head Exam Head Exam: ATRAUMATIC, NORMAL INSPECTION, NORMOCEPHALIC - Eye Exam Eye Exam: Normal appearance, PERRL Pupil Exam: NORMAL ACCOMODATION, PERRL - ENT Exam ENT Exam: Mucous Membranes Moist - Respiratory Exam Respiratory Exam: Clear to Auscultation Bilateral, NORMAL BREATHING PATTERN. absent: Rales, Rhonchi, Wheezes - Cardiovascular Exam Cardiovascular Exam: REGULAR RHYTHM, +S1, +S2. absent: Gallop, Rubs, Systolic Murmur - GI/Abdominal Exam GI & Abdominal Exam: Normal Bowel Sounds, Soft. 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 no pain - Neurological Exam Neurological exam: Alert, CN II-XII Intact, Oriented x3 - Psychiatric Exam Psychiatric exam: Normal Affect, Normal Mood - Skin Skin Exam: Dry, Warm Results - Vital Signs Recent Vital Signs: Last Vital Signs Temp 98.8 F 06/09/18 06:19 Pulse 64 06/09/18 06:19 Resp 20 06/09/18 06:19 BP 173/71 H 06/09/18 09:38 Pulse Ox 96 06/09/18 06:00 - Labs Result Diagrams: 06/09/18 07:50 06/09/18 07:50 Labs: Laboratory Results - last 24 hr 06/08/18 06/09/18 06/09/18 21:37 07:50 07:50 WBC 7.9 RBC 3.50 Hgb 9.7 L D Hct 29.2 L MCV 83.4 MCH 27.7 MCHC 33.2 RDW 14.5 Plt Count 147 MPV 11.0 Sodium 144 Potassium 3.7 Chloride 115 H Carbon Dioxide 21 Anion Gap 12 BUN 30 H Creatinine 1.5 Est GFR ( Amer) 54 Est GFR (Non-Af Amer) 45 Random Glucose 86 Calcium 8.3 L TSH 3rd Generation Blood Type AB POSITIVE Antibody Screen Negative Crossmatch See Detail BBK History Checked Patient has bt 06/09/18 07:50 WBC RBC Hgb Hct MCV MCH MCHC RDW Plt Count MPV Sodium Potassium Chloride Carbon Dioxide Anion Gap BUN Creatinine Est GFR ( Amer) Est GFR (Non-Af Amer) Random Glucose Calcium TSH 3rd Generation 2.35 Blood Type Antibody Screen Crossmatch BBK History Checked Assessment & Plan - Assessment and Plan (Free Text) Assessment: This is an 82yo make with past medical history of HTN, CVA, CKD IIIb, normocytic anemia, Gout, gastric ulcer admitted for 1. HENRIK on CKD stage IIIb (resolved) - can be secondary to medications v. dehydration - spoke with family. Patient has appointment with Dr. Stephens in a couple of weeks as outpatient 2. HTN 3. Anemia - Normocytic, but multifactorial - Iron studies reviewed - Ferritin pending 4. Gastric Ulcer - [place] class III- stable 5. Gout - No acute attack noted on exam Plan: Patient Hgb at baseline. Will check ferritin level. HENRIK now resolved. Will check uric acid. Continue allopurinol for gout. Continue Lasix. Clonidine prn for HTN. Protonix for gastric ulcer. Case seen, discussed and reviewed with Dr. Zhu. Beatriz Booth PGY3 - Date & Time Date: 06/09/18 Time: 15:27 <Flako Zhu - Last Filed: 06/10/18 22:14> Meds - Medications Medications: Current Medications Acetaminophen (Tylenol 325mg Tab) 650 mg PO Q4H PRN PRN Reason: Fever >100.4 F Acetaminophen (Tylenol 325mg Tab) 650 mg PO Q4H PRN PRN Reason: Pain, moderate (4-7) Allopurinol (Zyloprim) 100 mg PO BID [facility] Last Admin: 06/10/18 17:10 Dose: 100 mg Atorvastatin Calcium (Lipitor) 10 mg PO DIN [facility] Last Admin: 06/10/18 17:09 Dose: 10 mg Famotidine (Pepcid) 20 mg PO HS [facility] Last Admin: 06/10/18 21:13 Dose: 20 mg Furosemide (Lasix) 20 mg IVP Q12 [facility] Last Admin: 06/10/18 10:24 Dose: 20 mg Hydralazine HCl (Apresoline) 10 mg IVP Q6 PRN PRN Reason: SBP > 160 Lisinopril (Zestril) 5 mg PO DAILY [facility] Last Admin: 06/10/18 10:24 Dose: 5 mg Metoprolol Tartrate (Lopressor) 50 mg PO BRKDIN [facility] Last Admin: 06/10/18 17:09 Dose: 50 mg Pantoprazole Sodium (Protonix Ec Tab) 40 mg PO 0600 [facility] Results - Vital Signs Recent Vital Signs: Last Vital Signs Temp 98.2 F 06/10/18 14:00 Pulse 50 L 06/10/18 14:00 Resp 18 06/10/18 14:00 BP 159/49 H 06/10/18 18:54 Pulse Ox 100 06/10/18 14:00 - Labs Result Diagrams: 06/10/18 09:10 06/09/18 07:50 Labs: Laboratory Results - last 24 hr 06/09/18 06/10/18 06/10/18 07:10 06:30 09:10 WBC 7.1 RBC 3.66 Hgb 10.2 L Hct 30.3 L MCV 82.8 MCH 27.9 MCHC 33.7 RDW 14.5 Plt Count 148 MPV 10.2 POC Glucose (mg/dL) 83 Ferritin 220.0 Assessment & Plan - Assessment and Plan (Free Text) Plan: Pt seen and examined. I have reviewed the note of the chief medical physicist and agree with it. I have discussed the assessment and plan with the resident. I have reviewed the patient's labs and medications. Pt's Cr is has improved. Old records have been reviewed. Pt has an outpt f/u with Dr Stephens.
[2018-06-09 16:01] LABS: URIC ACID 6.4 mg/dL (3.5-8.5)
--- NOTE | 2018-06-10 05:08 | CP.PCM.PN ---
<Sultana Booth - Last Filed: 06/10/18 09:43> Subjective - Date & Time of Evaluation Date of Evaluation: 06/10/18 Time of Evaluation: 07:00 - Subjective Subjective: Medicine Progress Note for Beatriz Pete PGY3 Patient seen and examined at bedside. There were no acute overnight events as per nursing staff. Patient denies chest pain, shortness of breath, nausea/ vomiting/diarrhea, fever/chills, numbness/tingling, joint pain, dysuria or hematuria, vision changes or headache. Objective - Vital Signs/Intake and Output Vital Signs (last 24 hours): Temp Pulse Resp BP Pulse Ox 98.5 F 50 L 20 154/66 H 100 06/09/18 22:22 06/10/18 00:00 06/09/18 22:22 06/10/18 00:00 06/09/18 22:22 Intake and Output: 06/09/18 06/10/18 18:59 06:59 Intake Total 620 Balance 620 - Medications Medications: Current Medications Acetaminophen (Tylenol 325mg Tab) 650 mg PO Q4H PRN PRN Reason: Fever >100.4 F Acetaminophen (Tylenol 325mg Tab) 650 mg PO Q4H PRN PRN Reason: Pain, moderate (4-7) Allopurinol (Zyloprim) 100 mg PO BID [facility] Last Admin: 06/09/18 17:43 Dose: 100 mg Atorvastatin Calcium (Lipitor) 10 mg PO DIN [facility] Last Admin: 06/09/18 17:42 Dose: 10 mg Clonidine HCl (Catapres) 0.1 mg PO BID PRN PRN Reason: Systolic Blood Pressure Last Admin: 06/09/18 21:18 Dose: 0.1 mg Famotidine (Pepcid) 20 mg PO HS [facility] Last Admin: 06/09/18 21:18 Dose: 20 mg Furosemide (Lasix) 40 mg IVP Q12 [facility] Last Admin: 06/09/18 21:18 Dose: 40 mg - Labs Labs: 06/09/18 07:50 06/09/18 07:50 PT 10.9 SECONDS (9.4-12.5) 06/08/18 19:01 INR 0.96 (0.93-1.08) 06/08/18 19:01 APTT 30.0 Seconds (25.1-36.5) 06/08/18 19:01 - Constitutional Appears: No Acute Distress - Head Exam Head Exam: ATRAUMATIC, NORMAL INSPECTION, NORMOCEPHALIC - Eye Exam Eye Exam: Normal appearance, PERRL Pupil Exam: NORMAL ACCOMODATION - ENT Exam ENT Exam: Mucous Membranes Moist - Neck Exam Neck Exam: Full ROM - Respiratory Exam Respiratory Exam: Clear to Ausculation Bilateral, NORMAL BREATHING PATTERN. absent: Rales, Rhonchi, Wheezes - Cardiovascular Exam Cardiovascular Exam: REGULAR RHYTHM, +S1, +S2. absent: Gallop, Rubs, Murmur - GI/Abdominal Exam GI & Abdominal Exam: Soft, Normal Bowel Sounds. absent: Rigid, Tenderness, Mass , Rebound - Extremities Exam Extremities Exam: Normal Inspection. absent: Calf Tenderness, Pedal Edema - Neurological Exam Neurological Exam: Alert, Awake, CN II-XII Intact, Oriented x3 - Psychiatric Exam Psychiatric exam: Normal Affect, Normal Mood - Skin Skin Exam: Dry, Warm Assessment and Plan - Assessment and Plan (Free Text) Assessment: This is an 82yo make with past medical history of HTN, CVA, CKD IIIb, normocytic anemia, Gout, gastric ulcer admitted for 1. HENRIK on CKD stage IIIb (resolved) - can be secondary to medications v. dehydration - spoke with family. Patient has appointment with Dr. Stephens in a couple of weeks as outpatient 2. HTN 3. Anemia s/p 2U PRBC - Normocytic, but multifactorial - Iron studies reviewed - Ferritin pending 4. Gastric Ulcer - [place] class III- stable 5. Gout - No acute attack noted on exam Plan: Uric acid level 6.4. Continue allopurinol. Labs reviewed. Will place patient on Lisinopril. Will decrease Lasix to 20q12. Patient not in fluid overload. Case seen, discussed and reviewed with Dr. Zhu. Beatriz Booth PGY3 <Flako Zhu S - Last Filed: 06/10/18 23:11> Objective - Vital Signs/Intake and Output Vital Signs (last 24 hours): Temp Pulse Resp BP Pulse Ox 99.1 F 48 L 16 170/63 H 100 06/10/18 22:23 06/10/18 22:23 06/10/18 22:23 06/10/18 22:23 06/10/18 22:23 Intake and Output: 06/10/18 06/11/18 18:59 06:59 Intake Total 360 Balance 360 - Medications Medications: Current Medications Acetaminophen (Tylenol 325mg Tab) 650 mg PO Q4H PRN PRN Reason: Fever >100.4 F Acetaminophen (Tylenol 325mg Tab) 650 mg PO Q4H PRN PRN Reason: Pain, moderate (4-7) Allopurinol (Zyloprim) 100 mg PO BID [facility] Last Admin: 06/10/18 17:10 Dose: 100 mg Atorvastatin Calcium (Lipitor) 10 mg PO DIN [facility] Last Admin: 06/10/18 17:09 Dose: 10 mg Famotidine (Pepcid) 20 mg PO HS [facility] Last Admin: 06/10/18 21:13 Dose: 20 mg Furosemide (Lasix) 20 mg IVP Q12 [facility] Last Admin: 06/10/18 22:10 Dose: 20 mg Hydralazine HCl (Apresoline) 10 mg IVP Q6 PRN PRN Reason: SBP > 160 Lisinopril (Zestril) 5 mg PO DAILY [facility] Last Admin: 06/10/18 10:24 Dose: 5 mg Metoprolol Tartrate (Lopressor) 50 mg PO BRKDIN [facility] Last Admin: 06/10/18 17:09 Dose: 50 mg Pantoprazole Sodium (Protonix Ec Tab) 40 mg PO 0600 [facility] - Labs Labs: 06/10/18 09:10 06/09/18 07:50 PT 10.9 SECONDS (9.4-12.5) 06/08/18 19:01 INR 0.96 (0.93-1.08) 06/08/18 19:01 APTT 30.0 Seconds (25.1-36.5) 06/08/18 19:01 Assessment and Plan - Assessment and Plan (Free Text) Plan: Pt seen and examined. I have reviewed the note of the medical housekeeper and agree with it. I have discussed the assessment and plan with the resident. I have reviewed the patient's labs and medications. Pt with HENRIK and improving. Most likely Prerenal. On Allopurinol.
--- NOTE | 2018-06-10 08:18 | HP ---
06/09/18 CHIEF COMPLAINT: Abnormal labs. HISTORY OF PRESENT ILLNESS: The patient was seen and examined at the bedside on 06/09/2018. Mr. Joanne Thakkar is an 82-year-old male with past medical history of anemia, CVA, hypertension; came to the emergency department sent by my office because of low hemoglobin and symptomatic anemia. The patient noted he experienced weakness, high blood pressure and difficulty walking. Actually the patient's lab was done in my office and my office called him for his low hemoglobin, instructed to go to the emergency room, needs some blood transfusion and anemia workup. No fever. No chills. No hematuria or hematochezia. PAST MEDICAL HISTORY: Hypertension, congestive heart failure, history of gouty arthritis, renal insufficiency, acute on chronic, history of stroke. FAMILY HISTORY: Father and mother noncontributory. HABITS: Former smoker, now no smoking. No drugs. No ethanol. ALLERGIES: THE PATIENT IS NOT ALLERGIC WITH ANY MEDICATIONS. HOME MEDICATIONS: Aspirin, furosemide. REVIEW OF SYSTEMS: The patient is seen and examined on the bedside, looking comfortable. Daughter and were sitting on the bedside. No nausea, vomiting, or diarrhea. No hematuria or hematochezia. No headache, no dizziness. Has history of swelling of the legs. Feeling very fatigued and tired. PHYSICAL EXAMINATION: VITAL SIGNS: Temperature 99.5, pulse 54, respiratory rate 18, blood pressure 173/67, pulse oximetry 99. HEENT: Head normocephalic, atraumatic. Eyes PERRLA. Extraocular muscles intact. Conjunctivae clear. Nose patent. Mucous membrane moist. NECK: Supple. No carotid bruit. No JVD or thyromegaly. CHEST: Bilaterally symmetrical. HEART: S1 and S2 positive. LUNGS: Clear to auscultation. ABDOMEN: Soft. Bowel sounds present. No organomegaly. EXTREMITIES: No edema. No cyanosis. NEUROLOGICAL: The patient is awake and alert. Moving all 4 extremities. No focal deficits. LABORATORY DATA: White blood cells 6.6, hemoglobin 7.7, hematocrit 24, platelets 170. Sodium 140, potassium 4, BUN 32, creatinine 1.7, glucose 106. ASSESSMENT AND PLAN: Mr. Joanne Thakkar is an 82-year-old male with anemia, renal insufficiency, hyperchloremia. Anemia is symptomatic. Feeling very fatigued and tired. We admitted the patient, gave 1 unit of packed RBC. Chest x-ray done. Nephrology consult called with Dr. Zhu. The patient has a history of hypertension, cerebrovascular accident, chronic kidney disease 3B, history of gastric ulcer , class 3, anemia, history of appendectomy, gouty arthritis, rule out dehydration, gastric ulcer. The patient's hemoglobin is baseline. Acute kidney injury is now resolving. We will check uric acid level. Continue allopurinol for gouty arthritis. Continue the patient on clonidine p.r.n. for hypertension, Protonix for gastric ulcers. Length of time discussion done with the patient's daughter and the patient by himself. GI and deep venous thrombosis prophylaxes. Repeat labs. We will follow up. Iveth Cramer MD MTDD
--- NOTE | 2018-06-10 09:10 | CP.PCM.CON ---
<Reji Benito - Last Filed: 06/10/18 11:54> History of Present Illness - History of Present Illness History of Present Illness: PGY-4 GI Fellow Consult Note Mr. Thakkar is a 82 yo male with h/o chronic normocytic anemia, HTN, CKD3, CVA, h/o gastric ulcer (FC III on EGD April 2018) presenting with complaint of "not feeling well." GI consulted for anemia, concern for possible GI cause. He states that he has generalized fatigue over the last several days. He denied any CP, SOB, Abd Pain, Hematemesis, Melena nor hematochezia. He was found to have a Hgb of 7.7 (bl ~7.5-8.5), transfuse 2 units PRBCs with appropriate response to 9.7. This AM during my encounter he states that he is feeling much better this AM which he attributed to getting a good nights rest. He states that he has been moving his bowel recently and states that stool has been "normal" consisting of formed brown stool. 12 point ROS negative other than stated above MHx: Gastric Ulcer (FC III on EGD 05/11/18, no biopsies; HH, Schatzki Ring), as above SurgHx: Appendectoym Meds: ASA, simvastatin, furosemide, allopurinol FamHx: Denied fam h/o cancer SocHx: Denied EtOH/Ill, Former smoker All: NKDA Past Patient History - Infectious Disease Hx of Infectious Diseases: None - Past Social History Smoking Status: Former Smoker - CARDIAC Hx Cardiac Disorders: Yes (sinus aspen) Hx Congestive Heart Failure: Yes Hx Hypercholesterolemia: Yes Hx Hypertension: Yes Hx Peripheral Edema: Yes (b/l feet +3 pitting, L hand +1 pitting) - PULMONARY Hx Respiratory Disorders: No - NEUROLOGICAL HX Cerebrovascular Accident: Yes (2008) Other/Comment: cva 2009 pt had left leg weakness went to pt and resolved - HEENT Hx HEENT Problems: Yes ([place] b/l ears, eyeglasses) - RENAL Hx Chronic Kidney Disease: Yes (stage 3) Other/Comment: acute kidney injury - ENDOCRINE/METABOLIC Hx Endocrine Disorders: No - HEMATOLOGICAL/ONCOLOGICAL Hx Blood Disorders: Yes Hx Anemia: Yes Other/Comment: high uric acit - INTEGUMENTARY Hx Dermatological Problems: Yes Other/Comment: slight redness to both feet, and left hand, dry toenails - MUSCULOSKELETAL/RHEUMATOLOGICAL Hx Falls: No - GASTROINTESTINAL Hx Gastrointestinal Disorders: No - GENITOURINARY/GYNECOLOGICAL Hx Genitourinary Disorders: No - PSYCHIATRIC Hx Substance Use: No - SURGICAL HISTORY Hx Surgeries: No - ANESTHESIA Hx Anesthesia Reactions: No Hx Malignant Hyperthermia: No Meds Allergies/Adverse Reactions: Allergies Allergy/AdvReac Type Severity Reaction Status Date / Time No Known Allergies Allergy Verified 05/09/18 13:01 - Medications Medications: Current Medications Acetaminophen (Tylenol 325mg Tab) 650 mg PO Q4H PRN PRN Reason: Fever >100.4 F Acetaminophen (Tylenol 325mg Tab) 650 mg PO Q4H PRN PRN Reason: Pain, moderate (4-7) Allopurinol (Zyloprim) 100 mg PO BID [facility] Last Admin: 06/09/18 17:43 Dose: 100 mg Atorvastatin Calcium (Lipitor) 10 mg PO DIN [facility] Last Admin: 06/09/18 17:42 Dose: 10 mg Clonidine HCl (Catapres) 0.1 mg PO BID PRN PRN Reason: Systolic Blood Pressure Last Admin: 06/09/18 21:18 Dose: 0.1 mg Famotidine (Pepcid) 20 mg PO HS [facility] Last Admin: 06/09/18 21:18 Dose: 20 mg Furosemide (Lasix) 40 mg IVP Q12 [facility] Last Admin: 06/09/18 21:18 Dose: 40 mg Lisinopril (Zestril) 5 mg PO DAILY [facility] Physical Exam - Constitutional Appears: Well, Non-toxic - Head Exam Head Exam: ATRAUMATIC - Eye Exam Eye Exam: EOMI. absent: Conjunctival injection, Scleral icterus - ENT Exam ENT Exam: Mucous Membranes Dry, Mucous Membranes Moist, Normal External Ear Exam - Respiratory Exam Respiratory Exam: Clear to Auscultation Bilateral, NORMAL BREATHING PATTERN. absent: Accessory Muscle Use, Respiratory Distress - Cardiovascular Exam Cardiovascular Exam: REGULAR RHYTHM. absent: Bradycardia, Tachycardia, Systolic Murmur - GI/Abdominal Exam GI & Abdominal Exam: Normal Bowel Sounds, Soft. absent: Bruit, Diminished Bowel Sounds, Distended, Firm, Guarding, Hernia, Hyperactive Bowel Sounds, Hypoactive Bowel Sounds, Organomegaly, Pulsatile Mass, Rebound, Rigid, Tenderness - Rectal Exam Rectal Exam: NORMAL INSPECTION (Brown stool, no pain) - Neurological Exam Neurological exam: Alert, CN II-XII Intact, Oriented x3 - Psychiatric Exam Psychiatric exam: Normal Affect, Normal Mood - Skin Skin Exam: Normal Color, Warm Results - Vital Signs Recent Vital Signs: Last Vital Signs Temp 98.4 F 06/10/18 06:00 Pulse 51 L 06/10/18 06:00 Resp 20 06/10/18 06:00 BP 150/58 L 06/10/18 06:00 Pulse Ox 99 06/10/18 06:00 - Labs Result Diagrams: 06/10/18 09:10 06/09/18 07:50 Labs: Laboratory Results - last 24 hr 06/09/18 06/09/18 07:10 07:50 Uric Acid 6.4 Prostate Specific Ag 1.5 Assessment & Plan - Assessment and Plan (Free Text) Assessment: 82 yo male with h/o anemia, gastric ulcer and CVA presenting with complain of not feeling well and Hgb 7.7 # Chronic Normocytic Anemia: Hgb 7.7 s/p 2 units PRBCs with appropriate response to 9.7. No signs of active bleeding. Suspect multifactorial in nature related to previous gastric ulcer (though was not bleeding during EGD on 05/11/18) as well as anemia of chronic disease. Pt will need outpatient Colonoscopy if desired, as well as repeat EGD to re-evaluate gastric ulcer. Plan: - Pt to f/u as outpatient in 1 month (apt on 07/14/[address] Diamond for repeat EGD as well as Colonoscopy) - Daily PPI until f/u - No further workup inpatient from GI - OK to DC from GI standpoint Pt seen and examined with Dr. Diamond <Jaylin Diamond - Last Filed: 06/10/18 14:50> Meds - Medications Medications: Current Medications Acetaminophen (Tylenol 325mg Tab) 650 mg PO Q4H PRN PRN Reason: Fever >100.4 F Acetaminophen (Tylenol 325mg Tab) 650 mg PO Q4H PRN PRN Reason: Pain, moderate (4-7) Allopurinol (Zyloprim) 100 mg PO BID [facility] Last Admin: 06/10/18 10:15 Dose: 100 mg Atorvastatin Calcium (Lipitor) 10 mg PO DIN [facility] Last Admin: 06/09/18 17:42 Dose: 10 mg Famotidine (Pepcid) 20 mg PO HS [facility] Last Admin: 06/09/18 21:18 Dose: 20 mg Furosemide (Lasix) 20 mg IVP Q12 [facility] Last Admin: 06/10/18 10:24 Dose: 20 mg Hydralazine HCl (Apresoline) 10 mg IVP Q6 PRN PRN Reason: SBP > 160 Lisinopril (Zestril) 5 mg PO DAILY [facility] Last Admin: 06/10/18 10:24 Dose: 5 mg Metoprolol Tartrate (Lopressor) 50 mg PO BRKDIN [facility] Pantoprazole Sodium (Protonix Ec Tab) 40 mg PO 0600 [facility] Results - Vital Signs Recent Vital Signs: Last Vital Signs Temp 98.4 F 06/10/18 06:00 Pulse 51 L 06/10/18 06:00 Resp 20 06/10/18 06:00 BP 164/60 H 06/10/18 10:24 Pulse Ox 99 06/10/18 06:00 - Labs Result Diagrams: 06/10/18 09:10 06/09/18 07:50 Labs: Laboratory Results - last 24 hr 06/09/18 06/09/18 06/10/18 07:10 07:50 06:30 WBC RBC Hgb Hct MCV MCH MCHC RDW Plt Count MPV POC Glucose (mg/dL) 83 Uric Acid 6.4 Ferritin 220.0 Prostate Specific Ag 1.5 06/10/18 09:10 WBC 7.1 RBC 3.66 Hgb 10.2 L Hct 30.3 L MCV 82.8 MCH 27.9 MCHC 33.7 RDW 14.5 Plt Count 148 MPV 10.2 POC Glucose (mg/dL) Uric Acid Ferritin Prostate Specific Ag Attending/Attestation - Attestation I have personally seen and examined this patient.: Yes I have fully participated in the care of the patient.: Yes I have reviewed all pertinent clinical information: Yes Notes (Text): 06/10/18 14:49 Patient seen with GI fellow in am. This is a 82 yo male with h/o anemia, gastric ulcer and CVA presenting with complain of not feeling well and Hgb 7.7 s /p 2 units PRBCs with appropriate response to 9.7. No signs of active bleeding. Suspect multifactorial in nature related to previous gastric ulcer ( though was not bleeding during EGD on 05/11/18) as well as anemia of chronic disease. Pt will need outpatient Colonoscopy if desired, as well as repeat EGD to re-evaluate gastric ulcer. Daily PPI until f/u. No further workup inpatient from GI. OK to DC from GI standpoint
[2018-06-10 09:29] LABS: HEMOGLOBIN 10.2 g/dL (14.0-18.0); MEAN CELL VOLUME 82.8 fl (80.0-105.0); MEAN CORPUSCULAR HEMOGLOBIN 27.9 pg (25.0-35.0); MEAN CORPUSCULAR HGB CONC 33.7 g/dl (31.0-37.0); MEAN PLATELET VOLUME 10.2 fl (7.0-11.0); RBC 3.66 10^6/uL (3.5-6.1); RED CELL DISTRIBUTION WIDTH 14.5 % (11.5-14.5); WHITE BLOOD COUNT 7.1 10^3/ul (4.5-11.0)
--- NOTE | 2018-06-10 12:33 | CP.PCM.CON ---
History of Present Illness - History of Present Illness History of Present Illness: Awake, alert, denies chest pain, no distress Reason for consultation: Cardiac evaluation of uncontrolled hypertension, history of CVA with left sided weakness,anemia Brief history of present illness. An 82 year old male Prydeinig who came in to the ER due to generalized weakness and uncontrolled hypertension. denies chest pain or shortness of breath. History of CVA with left sided weakness, walks with cane, anemia. Seen and examined by me and Dr. Bhandari Review of Systems - Review of Systems All systems: reviewed and no additional remarkable complaints except Review of Systems: per HPI Past Patient History - Infectious Disease Hx of Infectious Diseases: None - Past Social History Smoking Status: Former Smoker - CARDIAC Hx Cardiac Disorders: Yes (sinus aspen) Hx Congestive Heart Failure: Yes Hx Hypercholesterolemia: Yes Hx Hypertension: Yes Hx Peripheral Edema: Yes (b/l feet +3 pitting, L hand +1 pitting) - PULMONARY Hx Respiratory Disorders: No - NEUROLOGICAL HX Cerebrovascular Accident: Yes (2008) Other/Comment: cva 2009 pt had left leg weakness went to pt and resolved - HEENT Hx HEENT Problems: Yes ([place] b/l ears, eyeglasses) - RENAL Hx Chronic Kidney Disease: Yes (stage 3) Other/Comment: acute kidney injury - ENDOCRINE/METABOLIC Hx Endocrine Disorders: No - HEMATOLOGICAL/ONCOLOGICAL Hx Blood Disorders: Yes Hx Anemia: Yes Other/Comment: high uric acit - INTEGUMENTARY Hx Dermatological Problems: Yes Other/Comment: slight redness to both feet, and left hand, dry toenails - MUSCULOSKELETAL/RHEUMATOLOGICAL Hx Falls: No - GASTROINTESTINAL Hx Gastrointestinal Disorders: No - GENITOURINARY/GYNECOLOGICAL Hx Genitourinary Disorders: No - PSYCHIATRIC Hx Substance Use: No - SURGICAL HISTORY Hx Surgeries: No - ANESTHESIA Hx Anesthesia Reactions: No Hx Malignant Hyperthermia: No Meds Allergies/Adverse Reactions: Allergies Allergy/AdvReac Type Severity Reaction Status Date / Time No Known Allergies Allergy Verified 05/09/18 13:01 - Medications Medications: Current Medications Acetaminophen (Tylenol 325mg Tab) 650 mg PO Q4H PRN PRN Reason: Fever >100.4 F Acetaminophen (Tylenol 325mg Tab) 650 mg PO Q4H PRN PRN Reason: Pain, moderate (4-7) Allopurinol (Zyloprim) 100 mg PO BID [facility] Last Admin: 06/10/18 10:15 Dose: 100 mg Atorvastatin Calcium (Lipitor) 10 mg PO DIN [facility] Last Admin: 06/09/18 17:42 Dose: 10 mg Famotidine (Pepcid) 20 mg PO HS [facility] Last Admin: 06/09/18 21:18 Dose: 20 mg Furosemide (Lasix) 20 mg IVP Q12 [facility] Last Admin: 06/10/18 10:24 Dose: 20 mg Lisinopril (Zestril) 5 mg PO DAILY [facility] Last Admin: 06/10/18 10:24 Dose: 5 mg Pantoprazole Sodium (Protonix Ec Tab) 40 mg PO 0600 [facility] Physical Exam - Constitutional Appears: No Acute Distress - Eye Exam Eye Exam: Normal appearance - ENT Exam ENT Exam: Mucous Membranes Moist - Respiratory Exam Respiratory Exam: Clear to Auscultation Bilateral, NORMAL BREATHING PATTERN - Cardiovascular Exam Cardiovascular Exam: +S1, +S2 - GI/Abdominal Exam GI & Abdominal Exam: Normal Bowel Sounds, Soft - Neurological Exam Neurological exam: Alert, Oriented x3 - Skin Skin Exam: Dry, Intact, Warm Results - Vital Signs Recent Vital Signs: Last Vital Signs Temp 98.4 F 06/10/18 06:00 Pulse 51 L 06/10/18 06:00 Resp 20 06/10/18 06:00 BP 164/60 H 06/10/18 10:24 Pulse Ox 99 06/10/18 06:00 - Labs Result Diagrams: 06/10/18 09:10 06/09/18 07:50 Labs: Laboratory Results - last 24 hr 06/09/18 06/09/18 06/10/18 07:10 07:50 06:30 WBC RBC Hgb Hct MCV MCH MCHC RDW Plt Count MPV POC Glucose (mg/dL) 83 Uric Acid 6.4 Prostate Specific Ag 1.5 06/10/18 09:10 WBC 7.1 RBC 3.66 Hgb 10.2 L Hct 30.3 L MCV 82.8 MCH 27.9 MCHC 33.7 RDW 14.5 Plt Count 148 MPV 10.2 POC Glucose (mg/dL) Uric Acid Prostate Specific Ag Assessment & Plan - Assessment and Plan (Free Text) Assessment: An 82 year old male Prydeinig who came in to the ER due to generalized weakness and uncontrolled hypertension and low hemoglobin. denies chest pain or shortness of breath. 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 Recent EGD done 05/11/18- Hiatal hernia, Schatzki ring, multiple gastric body and antral ulcers. Review of cardiac work up: 05/11/18 ECHO- normal LVEF 65% Mild MR/TR Plan: Uncontrolled hypertension On Lisinopril 5 mg daily Will add Lopressor 25 mg BID Stable H/H post transfusion Continue current treatment Continue current medications Will follow up Plan and treatment discussed with Dr. Bhandari Thank you Dr. Cramer for the opportunity of taking care of Mr. Joanne Thakkar - Date & Time Date: 06/10/18 Time: 07:05
--- NOTE | 2018-06-11 04:01 | PN ---
DATE: 06/11/2018 SUBJECTIVE: The patient was seen and examined at the bedside on 06/10/2018. There is no acute overnight event. As per nursing staff, the patient is sitting on the chair. is sitting on the bedside also. Denies shortness of breath. Swelling of the leg is getting better. No fever, no chills. No nausea, vomiting or diarrhea. No joint pain, no dysuria, no hematuria. No vision changes or headaches. PHYSICAL EXAMINATION: GENERAL: Temperature 98.5, pulse 50, respiratory rate 20, blood pressure 154/56, pulse oximetry of 100. HEENT: Head normocephalic, atraumatic. Eyes PERRLA. Extraocular muscles intact. Conjunctivae clear. Nose patent. NECK: Supple. No carotid bruit. No JVD or thyromegaly. CHEST: Bilaterally symmetrical. HEART: S1 and S2 positive. LUNGS: Clear to auscultation. ABDOMEN: Soft. Bowel sounds present. No organomegaly. EXTREMITIES: No edema. No cyanosis. NEUROLOGICAL: The patient is awake and alert. Moving all 4 extremities. No focal deficits. MEDICATIONS: Tylenol, allopurinol, atorvastatin, clonidine, famotidine, furosemide. LABORATORY DATA: White blood cells 7.9, hemoglobin 9.7, hematocrit 29.2, platelets 147. Sodium 145, potassium 3.7, BUN 30, creatinine 1.7, glucose 86. ASSESSMENT AND PLAN: Mr. Joanne Thakkar is 82-year-old male with anemia, hyperchloremia, renal insufficiency, came with severe anemia status post blood transfusion. Industrial Service Technician is on the case. History of hypertension, cerebrovascular accident, chronic kidney disease IIIB, monocytic anemia. Length of time discussion done with the patient's family. The patient had appointment with Dr. Stephens in a couple of weeks. Hypertension, status post blood transfusion, gastric ulcers, gouty arthritis, uric acid level is 6.4, continue allopurinol, repeat labs. Gastrointestinal and deep venous thrombosis prophylaxes. We will follow up. Iveth Cramer MD
--- NOTE | 2018-06-11 05:02 | CP.PCM.PN ---
<Sultana Booth - Last Filed: 06/11/18 09:07> Subjective - Date & Time of Evaluation Date of Evaluation: 06/11/18 Time of Evaluation: 07:00 - Subjective Subjective: Nephrology Progress Note for Beatriz Pete PGY3 Patient seen and examined at bedside. No acute overnight events as per nursing staff. Patient is resting comfortably in bed. He denies chest pain, joint pain, shortness of breath, urinary frequency, dysuria/hematuria, nausea/vomiting/ diarrhea, fever or chills. Objective - Vital Signs/Intake and Output Vital Signs (last 24 hours): Temp Pulse Resp BP Pulse Ox 99.1 F 48 L 16 170/63 H 100 06/10/18 22:23 06/10/18 22:23 06/10/18 22:23 06/10/18 22:23 06/10/18 22:23 Intake and Output: 06/10/18 06/11/18 18:59 06:59 Intake Total 360 Balance 360 - Medications Medications: Current Medications Acetaminophen (Tylenol 325mg Tab) 650 mg PO Q4H PRN PRN Reason: Fever >100.4 F Acetaminophen (Tylenol 325mg Tab) 650 mg PO Q4H PRN PRN Reason: Pain, moderate (4-7) Allopurinol (Zyloprim) 100 mg PO BID [facility] Last Admin: 06/10/18 17:10 Dose: 100 mg Atorvastatin Calcium (Lipitor) 10 mg PO DIN [facility] Last Admin: 06/10/18 17:09 Dose: 10 mg Famotidine (Pepcid) 20 mg PO HS [facility] Last Admin: 06/10/18 21:13 Dose: 20 mg Furosemide (Lasix) 20 mg IVP Q12 [facility] Last Admin: 06/10/18 22:10 Dose: 20 mg Hydralazine HCl (Apresoline) 10 mg IVP Q6 PRN PRN Reason: SBP > 160 Lisinopril (Zestril) 5 mg PO DAILY [facility] Last Admin: 06/10/18 10:24 Dose: 5 mg Metoprolol Tartrate (Lopressor) 50 mg PO BRKDIN [facility] Last Admin: 06/10/18 17:09 Dose: 50 mg Pantoprazole Sodium (Protonix Ec Tab) 40 mg PO 0600 [facility] - Labs Labs: 06/10/18 09:10 06/09/18 07:50 PT 10.9 SECONDS (9.4-12.5) 06/08/18 19:01 INR 0.96 (0.93-1.08) 06/08/18 19:01 APTT 30.0 Seconds (25.1-36.5) 06/08/18 19:01 - Constitutional Appears: No Acute Distress - Head Exam Head Exam: ATRAUMATIC, NORMAL INSPECTION, NORMOCEPHALIC - Eye Exam Eye Exam: Normal appearance, PERRL Pupil Exam: NORMAL ACCOMODATION - ENT Exam ENT Exam: Mucous Membranes Moist - Neck Exam Neck Exam: Full ROM - Respiratory Exam Respiratory Exam: Clear to Ausculation Bilateral, NORMAL BREATHING PATTERN. absent: Rales, Rhonchi, Wheezes - Cardiovascular Exam Cardiovascular Exam: Bradycardia, REGULAR RHYTHM, +S1, +S2. absent: Gallop, Rubs, Murmur - GI/Abdominal Exam GI & Abdominal Exam: Soft, Normal Bowel Sounds. absent: Rigid, Tenderness, Mass , Rebound - Extremities Exam Extremities Exam: Normal Inspection. absent: Calf Tenderness, Pedal Edema - Neurological Exam Neurological Exam: Alert, Awake, CN II-XII Intact, Oriented x3 - Psychiatric Exam Psychiatric exam: Normal Affect, Normal Mood - Skin Skin Exam: Dry, Intact, Warm Assessment and Plan - Assessment and Plan (Free Text) Assessment: This is an 82yo make with past medical history of HTN, CVA, CKD IIIb, normocytic anemia, Gout, gastric ulcer admitted for 1. Anemia - multifactorial- chronic disease from CKD, mild iron deficiency from stable gastric ulcer - s/p 2U PRBC - Hgb stable 2. CKD stage IIIb - Cr at baseline 3. HTN 4. Gastric ulcer 5. Gout - no acute attack - uric acid 6.4 Plan: Patient is bradycardic and not in fluid overload. Will d/c Metoprolol and Lasix. Patient started on Lisinopril 20mg daily. Patient has appointment with Dr. Stephens slitter operator in 2 weeks. He is on Allopurinol for gout. Kidney function is at baseline. Thank you for this consultation. Will sign off. Please re-consult if needed. Case seen, discussed and reviewed with Dr. Zhu. Beatriz Booth PGY3 <Flako Zhu S - Last Filed: 06/11/18 18:47> Objective - Vital Signs/Intake and Output Vital Signs (last 24 hours): Temp Pulse Resp BP Pulse Ox 98.8 F 56 L 18 147/55 L 98 06/11/18 06:00 06/11/18 10:11 06/11/18 06:00 06/11/18 10:11 06/11/18 06:00 Intake and Output: 06/11/18 06/11/18 06:59 18:59 Intake Total 600 Output Total 800 Balance -200 - Medications Medications: Current Medications Acetaminophen (Tylenol 325mg Tab) 650 mg PO Q4H PRN PRN Reason: Fever >100.4 F Acetaminophen (Tylenol 325mg Tab) 650 mg PO Q4H PRN PRN Reason: Pain, moderate (4-7) Allopurinol (Zyloprim) 100 mg PO BID [facility] Last Admin: 06/11/18 10:11 Dose: 100 mg Atorvastatin Calcium (Lipitor) 10 mg PO DIN [facility] Last Admin: 06/10/18 17:09 Dose: 10 mg Famotidine (Pepcid) 20 mg PO HS [facility] Last Admin: 06/10/18 21:13 Dose: 20 mg Hydralazine HCl (Apresoline) 10 mg IVP Q6 PRN PRN Reason: SBP > 160 Lisinopril (Zestril) 20 mg PO DAILY [facility] Last Admin: 06/11/18 10:11 Dose: 20 mg Pantoprazole Sodium (Protonix Ec Tab) 40 mg PO 0600 [facility] Last Admin: 06/11/18 05:44 Dose: 40 mg - Labs Labs: 06/11/18 06:30 06/11/18 06:30 PT 10.9 SECONDS (9.4-12.5) 06/08/18 19:01 INR 0.96 (0.93-1.08) 06/08/18 19:01 APTT 30.0 Seconds (25.1-36.5) 06/08/18 19:01 Assessment and Plan - Assessment and Plan (Free Text) Plan: Pt seen and examined. I have reviewed the note of the certified medical transcriptionist and agree with it. I have discussed the assessment and plan with the resident. I have reviewed the patient's labs and medications. PT with stable Cr. Metoprolol has been discontinued due to bradycardia. Pt is on Lisinopril for HTN. Will sign off. Re-consult if needed. Thank you.
[2018-06-11] MEDS ORDERED: Pantoprazole 40 mg EC Tab PO SCH (06:00)
[2018-06-11 07:11] LABS: MEAN CELL VOLUME 83.1 fl (80.0-105.0); MEAN CORPUSCULAR HEMOGLOBIN 27.3 pg (25.0-35.0); MEAN CORPUSCULAR HGB CONC 32.9 g/dl (31.0-37.0); MEAN PLATELET VOLUME 10.4 fl (7.0-11.0); RBC 3.66 10^6/uL (3.5-6.1); RED CELL DISTRIBUTION WIDTH 14.2 % (11.5-14.5)
[2018-06-11 07:19] LABS: CALCIUM 8.3 mg/dL (8.4-10.5)
[2018-06-11 07:28] VITALS: RESP 18; TEMP 98.8; O2SAT 98
--- NOTE | 2018-06-11 07:54 | CP.PCM.PN ---
Subjective - Date & Time of Evaluation Date of Evaluation: 06/11/18 Time of Evaluation: 06:25 - Subjective Subjective: Denies chest pain, no distress,alert,awake Reason for consultation: Cardiac evaluation of uncontrolled hypertension, history of CVA with left sided weakness,anemia Brief history of present illness. An 82 year old male [place] who came in to the ER due to generalized weakness and uncontrolled hypertension. denies chest pain or shortness of breath. History of CVA with left sided weakness, walks with cane, anemia. Seen and examined by me and Dr. Bhandari Objective - Vital Signs/Intake and Output Vital Signs (last 24 hours): Temp Pulse Resp BP Pulse Ox 98.8 F 50 L 18 151/52 H 98 06/11/18 06:00 06/11/18 06:00 06/11/18 06:00 06/11/18 06:00 06/11/18 06:00 Intake and Output: 06/11/18 06/11/18 06:59 18:59 Intake Total 600 Output Total 800 Balance -200 - Medications Medications: Current Medications Acetaminophen (Tylenol 325mg Tab) 650 mg PO Q4H PRN PRN Reason: Fever >100.4 F Acetaminophen (Tylenol 325mg Tab) 650 mg PO Q4H PRN PRN Reason: Pain, moderate (4-7) Allopurinol (Zyloprim) 100 mg PO BID [facility] Last Admin: 06/10/18 17:10 Dose: 100 mg Atorvastatin Calcium (Lipitor) 10 mg PO DIN [facility] Last Admin: 06/10/18 17:09 Dose: 10 mg Famotidine (Pepcid) 20 mg PO HS [facility] Last Admin: 06/10/18 21:13 Dose: 20 mg Furosemide (Lasix) 20 mg IVP Q12 [facility] Last Admin: 06/10/18 22:10 Dose: 20 mg Hydralazine HCl (Apresoline) 10 mg IVP Q6 PRN PRN Reason: SBP > 160 Lisinopril (Zestril) 5 mg PO DAILY [facility] Last Admin: 06/10/18 10:24 Dose: 5 mg Metoprolol Tartrate (Lopressor) 50 mg PO BRKDIN [facility] Last Admin: 06/10/18 17:09 Dose: 50 mg Pantoprazole Sodium (Protonix Ec Tab) 40 mg PO 0600 [facility] Last Admin: 06/11/18 05:44 Dose: 40 mg - Labs Labs: 06/11/18 06:30 06/11/18 06:30 PT 10.9 SECONDS (9.4-12.5) 06/08/18 19:01 INR 0.96 (0.93-1.08) 06/08/18 19:01 APTT 30.0 Seconds (25.1-36.5) 06/08/18 19:01 - Constitutional Appears: No Acute Distress - Eye Exam Eye Exam: Normal appearance - ENT Exam ENT Exam: Mucous Membranes Moist - Respiratory Exam Respiratory Exam: Clear to Ausculation Bilateral, NORMAL BREATHING PATTERN - Cardiovascular Exam Cardiovascular Exam: +S1, +S2 - GI/Abdominal Exam GI & Abdominal Exam: Soft, Normal Bowel Sounds - Extremities Exam Additional comments: 1+pedal edema - Neurological Exam Neurological Exam: Alert, Awake, Oriented x3 - Psychiatric Exam Psychiatric exam: Normal Affect - Skin Skin Exam: Intact, Warm Assessment and Plan - Assessment and Plan (Free Text) Assessment: An 82 year old male [place] who came in to the ER due to generalized weakness and uncontrolled hypertension and low hemoglobin. denies chest pain or shortness of breath. 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 Recent EGD done 05/11/18- Hiatal hernia, Schatzki ring, multiple gastric body and antral ulcers. 05/11/18 ECHO- normal LVEF 65%, Mild MR/TR Plan: Started on Lopressor yesterday Controlled blood pressure Stable cardiac status On Lisinopril 5 mg daily Stable H/H post transfusion Renal/GI on consult Continue current treatment Continue current medications Discharge planning Will follow up Plan and treatment discussed with Dr. Bhandari
--- NOTE | 2018-06-11 09:40 | CP.PCM.PCO ---
Physician Communication Note - Physician Communication Note Physician Communication Note: anemia-iron defificency, CKD III Assessment & Plan - Assessment and Plan (Free Text) Assessment: Anemia -iron deficiency, CKD III. s/p 2 units of PRBC. She will need IV iron and if Hb does not improve procrit to maintain Hb around 10-11gm/dl. R/O GI bleed. GI consultants on case. CT abdomen with PO contrast. CEA ordered. Full note will be dictated.
[2018-06-11 17:38] VITALS: BP 169/57; PULSE 52
--- NOTE | 2018-06-12 21:25 | DS ---
06/11/18 CHIEF COMPLAINT: Abnormal labs. HISTORY OF PRESENT ILLNESS: Mr. Joanne Thakkar is an [id number] male with past medical history of multiple medical problems, anemia of chronic disease, status post blood transfusion, CVA, and hypertension who came to the Emergency Department, sent actually by my office because of abnormal labs. The patient was having symptomatic anemia. We admitted the patient for hematology consult with Dr. Kathy Palacio. According to him, the patient has anemia of acute on chronic disease. If he will not respond after blood transfusion, we have to transfuse iron and Procrit, seen by Cardiology, Dr. Shannon; Dr. Flako Zhu, financial services intern; Dr. Jaylin Diamond, service operator. The patient improved. and daughter were siting on the bed side. The patient wanted to go home. I looked up him with different doctors and discharged home to continue home medications. PAST MEDICAL HISTORY: Hypertension, congestive heart failure, gouty arthritis, CVA, renal insufficiency acute on chronic, history of fatigue. FAMILY HISTORY: Father and mother, noncontributory. HABITS: Nonsmoker. No drugs. No ethanol. ALLERGIES: THE PATIENT IS NOT ALLERGIC WITH ANY MEDICATIONS. HOME MEDICATIONS: Aspirin and furosemide. REVIEW OF SYSTEMS: The patient was seen and examined at the bedside, looking comfortable. No nausea, vomiting, or diarrhea. No hematuria or hematochezia. No swelling of the legs. No chest pain. No palpitation. No headache. No dizziness. Feeling better. No acute overnight events happened as per nursing staff. No shortness of breath. PHYSICAL EXAMINATION: VITAL SIGNS: Temperature 98.1, pulse rate 48, respiratory rate 16, blood pressure 170/63, pulse oximetry 100. HEENT: Head normocephalic, atraumatic. Eyes: PERRLA. Extraocular muscles intact. Conjunctivae clear. Nose patent. Mucous membranes moist. NECK: Supple. No carotid bruit. No JVD or thyromegaly. CHEST: Bilaterally symmetrical. HEART: S1 and S2 positive. LUNGS: Clear to auscultation. ABDOMEN: Soft. Bowel sounds present. No organomegaly. EXTREMITIES: No edema. No cyanosis. NEUROLOGICAL: The patient is awake and alert. Moving all 4 extremities. No focal deficits. MEDICATIONS: Acetaminophen, allopurinol, atorvastatin, furosemide, hydralazine, lisinopril, metoprolol, and Protonix. LABORATORY DATA: White blood cells 7.1, hemoglobin 10.2, hematocrit 30.3, platelets 148. Sodium 144, potassium 3.7, BUN 30, creatinine 1.5, glucose 86. ASSESSMENT AND PLAN: Mr. Joanne Thakkar is an 82-year-old male with anemia, hyperchloremia, increased BUN. The patient has history of bradycardia and not fluid overload; history of hypertension; cerebrovascular accident; chronic kidney disease stage 3B; normocytic anemia; gouty arthritis; gastric ulcers; anemia, multifactorial; acute on chronic kidney disease. No acute events noted. Gastric and deep venous thrombosis prophylaxis. Repeat labs. We will follow up. Iveth Cramer MD MTDAraceli
== END 2018-06-11 21:23 | disposition home or self-care (01) | DRG 812 ==
LOC: ED 17:38 → ERH 21:32 → 5RSO 23:03
PROVIDERS: ADMIT Internal Medicine; ATTEND Internal Medicine
PROC: 30233N1 Transfusion of Nonautologous Red Blood Cells into Peripheral Vein, Percutaneous Approach (ICD-10-PCS; principal; 2018-06-09)
DX: D50.9 Iron deficiency anemia, unspecified (principal); N17.9 Acute kidney failure, unspecified; I13.0 Hypertensive heart and chronic kidney disease with heart failure and stage 1 through stage 4 chronic kidney disease, or unspecified chronic kidney disease; I69.354 Hemiplegia and hemiparesis following cerebral infarction affecting left non-dominant side; I50.9 Heart failure, unspecified; N18.3 Chronic kidney disease, stage 3 (moderate); D63.1 Anemia in chronic kidney disease; K25.9 Gastric ulcer, unspecified as acute or chronic, without hemorrhage or perforation; K22.2 Esophageal obstruction; M10.9 Gout, unspecified; K44.9 Diaphragmatic hernia without obstruction or gangrene; E78.00 Pure hypercholesterolemia, unspecified; Z79.82 Long term (current) use of aspirin; Z87.891 Personal history of nicotine dependence